=== PATIENT | male | born 1945 | race Caucasian/White ===

== ENCOUNTER → 2016-06-25 | Outpatient (CLI) | payer OTHER, MEDICAID ==
[~2016-06-25] MED LIST: ALBUTEROL0.09 MG/A2 IH; AMOXICILLIN500 MG PO; ASPIRIN CHEWABL81 M1 PO; ASPIRIN CHILDRE81 MG PO; ASPIRIN81 M1 PO; ATIVAN1 MG PO; Albuterol Sulfat3 M1 NEB; BACTRIM DS 8001 TAB PO; BENADRYL50 MG PO; BP MED; BRILINTA90 M1 PO; BRIN20TA PO; CEPHALEXIN500 M1 PO; CIPROFLOXACIN500 MG PO; CLARITIN10 MG PO; COGENTIN0.5 MG PO; COMBIVENT1 AR1 IH; DELTASONE20 MG PO; DESYREL100 MG PO; DIPHENHYDRAMINE25 M1 PO; FANAPT6 MG PO; GEODON20 M1 IM; GEODON80 MG PO; HYDROCODONE BIT1 T11 PO; IBU800 MG PO; INVEGA SUSTENN117 MG IM; INVEGA SUSTENN156 MG IM; INVEGA6 MG PO; KEFLEX500 M1 PO; KETOROLAC TR30 MG/ML IV; LISINOPRIL20 MG PO; LITHIUM CARBON300 MG PO; LORAZEPAM2 MG/ML IV; LOVENOX30 MG/0.3 SC; Lotrimin 1%15 GM T; METICORTEN1 MG; NEXIUM40 MG PO; NORCO 5-325 TA1 EACH PO; NORVASC10 MG PO; NORVASC5 MG PO; PREDNICOT10 MG PO; PREDNICOT20 MG PO; PROAIR HFA0.09 MG/AC INH; PROTONIX TR40 MG PO; PROTONIX40 MG PO; STERILE WATER 110 ML IV; TRAZADONE HYDR100 MG PO; TRAZODONE HCL150 MG PO; TRAZODONE150 MG PO; VISTARIL25 M1 PO; VITAMIN B121000 MCG PO; VITAMIN D5000 UNIT PO; VITAMIN D50000 I2 PO; WYMOX500 MG PO; ZESTRIL10 MG PO; ZITHROMAX Z PA250 MG PO; Zestril,Prinivil5 MG PO; [UNRECOGNIZED DRUG - OTHER] PO
== END | disposition home or self-care (01) ==
LOC: CARD 06-23 07:30
DX: I34.0 Nonrheumatic mitral (valve) insufficiency (principal); I07.1 Rheumatic tricuspid insufficiency; R06.02 Shortness of breath

== ENCOUNTER 2016-09-18 20:09 | Emergency (ER) | payer OTHER, MEDICAID ==
[~2016-09-18] VITALS: Ht 180.3 cm; Wt 86.2 kg
[2016-09-18 20:31] VITALS: BP 114/74
[2016-09-18 21:13] LABS: BASO % 0.3 % (0.0-1.0); EOS # 0.2 10*3/uL (0.0-0.4); EOS % 1.5 % (1.0-4.0); HEMATOCRIT 35.2 % (42.0-52.0); HEMOGLOBIN 11.6 g/dl (14.0-18.0); LYMPH # 1.3 10*3/uL (1.3-4.4); LYMPH % 11.3 % (27.0-41.0); MEAN CELL VOLUME 83.6 fl (80.0-94.0); MEAN CORPUSCULAR HGB 27.6 pg (27.0-31.0); MEAN PLATELET VOLUME 9.3 fl (9.6-12.3); MONO # 0.9 10*3/uL (0.1-1.0); MONO % 7.8 % (3.0-9.0); NEUT # 8.9 10*3/uL (2.3-7.9); NEUT % 78.8 % (47.0-73.0); PLATELET COUNT AUTOMATED 235 10*3/uL (130-400); RED BLOOD COUNT 4.21 10*6/uL (4.50-5.90); RED CELL DISTRI WIDTH 13.1 % (0-14.5); WHITE BLOOD COUNT 11.2 10*3/uL (4.8-10.8)
[2016-09-18 21:24] LABS: PROTHROMBIN TIME 10.5 SECONDS (9.0-12.4)
[2016-09-18 21:31] LABS: ALBUMIN 3.9 gm/dl (3.1-4.5); ALKALINE PHOSPHATASE 95 U/L (45-117); BILIRUBIN, TOTAL 0.8 mg/dl (0.2-1.0); BUN 27 mg/dl (7-24); CARBON DIOXIDE 27 mmol/L (21-32); CHLORIDE 103 mmol/L (98-107); EST GLOM FILT AFRICAN AMERICAN 42 ml/min; GLUCOSE 87 mg/dL (65-99); MAGNESIUM 1.8 mg/dL (1.5-2.1); POTASSIUM 4.5 mmol/L (3.5-5.1); SGOT/AST 17 IU/L (3-35); SGPT/ALT 20 U/L (12-78); SODIUM 138 mmol/L (136-145); TOTAL PROTEIN 6.8 gm/dL (6.4-8.2)
[2016-09-18 21:32] LABS: TROPONIN I < 0.015 ng/ml (<0.045)
== END 2016-09-18 22:10 | disposition home or self-care (01) ==
LOC: ED 20:09
PROVIDERS: Registered Nurse
DX: R42 Dizziness and giddiness (principal); R06.02 Shortness of breath; I10 Essential (primary) hypertension; F31.9 Bipolar disorder, unspecified; Z88.8 Allergy status to other drugs, medicaments and biological substances; Z79.82 Long term (current) use of aspirin; Z79.899 Other long term (current) drug therapy

== ENCOUNTER 2016-11-01 12:34 | Emergency (ER) | payer OTHER, MEDICAID ==
[~2016-11-01] VITALS: Ht 180.3 cm; Wt 79.4 kg
[2016-11-01 12:40] VITALS: BP 133/68
[2016-11-01] MEDS ORDERED: NORVASC5 MG PO (12:42)
[2016-11-01] MEDS ORDERED: VISTARIL25 MG PO (12:43)
[2016-11-01] MEDS ORDERED: VISTARIL25 M2 PO (12:43)
[2016-11-01] MEDS ORDERED: TRINTELLIX20 MG PO (12:44)
[2016-11-01] MEDS ORDERED: BREO ELLIPTA 11 EACH IH (12:44)
[2016-11-01] MEDS ORDERED: ZOCOR40 MG PO (12:44)
== END 2016-11-01 13:43 | disposition home or self-care (01) ==
LOC: ED 12:34
DX: S76.912A Strain of unspecified muscles, fascia and tendons at thigh level, left thigh, initial encounter (principal); Z79.82 Long term (current) use of aspirin; Z79.899 Other long term (current) drug therapy; Z88.8 Allergy status to other drugs, medicaments and biological substances; X50.9XXA Other and unspecified overexertion or strenuous movements or postures, initial encounter; Y93.89 Activity, other specified; Y92.9 Unspecified place or not applicable; Y99.9 Unspecified external cause status

== ENCOUNTER → 2017-02-04 | Outpatient (CLI) | payer OTHER, MEDICAID ==
[~2017-02-04] MED LIST changes: +BREO ELLIPTA 11 EACH IH; +TRINTELLIX20 MG PO; +VISTARIL25 M2 PO; +VISTARIL25 MG PO; +ZOCOR40 MG PO
== END | disposition home or self-care (01) ==
LOC: US 14:24
DX: I74.8 Embolism and thrombosis of other arteries (principal); I73.9 Peripheral vascular disease, unspecified

== ENCOUNTER → 2017-06-08 | Outpatient (CLI) | payer OTHER, MEDICAID | END | disposition home or self-care (01) | LOC: US 09:26 | DX: I71.4 Abdominal aortic aneurysm, without rupture (principal) ==

== ENCOUNTER → 2017-07-27 | Outpatient (CLI) | payer OTHER, MEDICAID ==
[2017-07-27 09:30] LABS: BASO % 0.6 % (0.0-1.0); EOS # 0.3 10*3/uL (0.0-0.4); EOS % 4.1 % (1.0-4.0); HEMATOCRIT 40.3 % (42.0-52.0); HEMOGLOBIN 13.4 g/dl (14.0-18.0); LYMPH # 0.9 10*3/uL (1.3-4.4); LYMPH % 13.3 % (27.0-41.0); MEAN CELL VOLUME 84.5 fl (80.0-94.0); MEAN CORPUSCULAR HGB 28.1 pg (27.0-31.0); MEAN CORPUSCULAR HGB CONC 33.3 g/dl (33.0-37.0); MEAN PLATELET VOLUME 9.2 fl (9.6-12.3); MONO # 0.6 10*3/uL (0.1-1.0); MONO % 8.9 % (3.0-9.0); NEUT # 4.8 10*3/uL (2.3-7.9); NEUT % 72.8 % (47.0-73.0); PLATELET COUNT AUTOMATED 244 10*3/uL (130-400); RED BLOOD COUNT 4.77 10*6/uL (4.50-5.90); RED CELL DISTRI WIDTH 13.8 % (0-14.5); WHITE BLOOD COUNT 6.5 10*3/uL (4.8-10.8)
[2017-07-27 09:42] LABS: ALKALINE PHOSPHATASE 102 U/L (45-117); BUN 19 mg/dl (7-24); CHLORIDE 103 mmol/L (98-107); CHOLESTEROL 158 mg/dL (<200); CREATININE 1.39 mg/dL (0.70-1.30); HDL CHOLESTEROL 68 mg/dl (40-60); LDL CHOLESTEROL 71 mg/dL (9-159); POTASSIUM 4.2 mmol/L (3.5-5.1); SGOT/AST 21 IU/L (3-35); SGPT/ALT 26 U/L (12-78); SODIUM 140 mmol/L (136-145); TOTAL PROTEIN 7.2 gm/dL (6.4-8.2); TRIGLYCERIDES 97 mg/dl (<150); VLDL CHOLESTEROL 19 mg/dL (6-40)
== END | disposition home or self-care (01) ==
LOC: LAB 08:26
PROVIDERS: Internal Medicine
DX: E78.2 Mixed hyperlipidemia (principal); I12.9 Hypertensive chronic kidney disease with stage 1 through stage 4 chronic kidney disease, or unspecified chronic kidney disease; N18.3 Chronic kidney disease, stage 3 (moderate)

== ENCOUNTER → 2017-12-09 | Outpatient (CLI) | payer OTHER, MEDICAID | END | disposition home or self-care (01) | LOC: US 09:12 | DX: Z13.6 Encounter for screening for cardiovascular disorders (principal); I71.4 Abdominal aortic aneurysm, without rupture; I73.9 Peripheral vascular disease, unspecified; Z95.820 Peripheral vascular angioplasty status with implants and grafts ==

== ENCOUNTER → 2018-06-09 | Day surgery (SDC) | payer OTHER, MEDICAID ==
--- NOTE | ~2018-06-09 | PROC NOTE ---
[place], [place] PROCEDURE NOTE NAME: SENTHIL MORRELL UNIT #: [id number] ROOM: DOCTOR: DACIA WU MD BIRTHDATE: [birth year] DOS: 06/09/2018 PREOPERATIVE DIAGNOSIS: Positive Cologuard. POSTOPERATIVE DIAGNOSIS: Sigmoid polyp, poor prep. PROCEDURE: Colonoscopy. ENDOSCOPIST: Dacia Wu MD MEDICAL PATHOLOGIST: JOAQUIN. ANESTHESIA: MAC. INDICATIONS: This is a 72-year-old gentleman who is here for a colonoscopy for a positive Cologuard test. The procedure and its complications were explained to the patient in detail preoperatively. Complications that were discussed included but were not limited to, bleeding, colon perforation, and missed lesions. He agreed to proceed. DESCRIPTION OF PROCEDURE: After identifying the patient, the patient was brought to the endoscopy suite and placed in the left lateral position. After a time-out procedure was called, IV sedation was administered by the anesthesia team. A digital rectal exam was performed, which was within normal limits. An adult colonoscope was now introduced into the anal canal and advanced sequentially into the rectum, sigmoid colon, descending colon, transverse colon and up to the cecum and the ascending colon. The prep was found to be suboptimal in various areas and copious amounts of saline were used for irrigation and sucking out of the liquid stool that was found. During the process of advancing the scope, a small polyp at approximately 40 cm from the anal verge was identified; however, this polyp could not be found during the withdrawal process despite multiple attempts and I think this is because of the patient's poor prep. The scope was then withdrawn and the patient was brought back to the recovery room in a stable fashion. Based on these findings, the patient is recommended to have another colonoscopy in the next few months in order to remove the polyp and to look for new ones after a better prep has been obtained. These findings will be discussed with the patient in the recovery room and in the office. [place], [place] PROCEDURE NOTE NAME: SENTHIL MORRELL UNIT #: [id number] ROOM: DOCTOR: DACIA WU MD BIRTHDATE: [birth year] Dacia Wu MD CM:PROCNOTE:PROCEDURE NOTE [id number] DACIA WU MD
[2018-06-09 08:35] VITALS: BP 133/80
[2018-06-09 09:30] VITALS: BP 122/78
[2018-06-09 09:44] VITALS: BP 109/72
[2018-06-09 09:56] VITALS: BP 109/72
== END | disposition home or self-care (01) ==
LOC: SDC 06-08 17:00
DX: K63.5 Polyp of colon (principal); K21.9 Gastro-esophageal reflux disease without esophagitis; I10 Essential (primary) hypertension; J43.9 Emphysema, unspecified; I73.9 Peripheral vascular disease, unspecified; F31.9 Bipolar disorder, unspecified; F41.9 Anxiety disorder, unspecified; Z87.891 Personal history of nicotine dependence; Z90.49 Acquired absence of other specified parts of digestive tract; Z98.890 Other specified postprocedural states; Z79.899 Other long term (current) drug therapy; Z88.8 Allergy status to other drugs, medicaments and biological substances

== ENCOUNTER → 2018-06-29 | Day surgery (SDC) | payer OTHER, MEDICAID ==
[~2018-06-29] VITALS: Ht 177.8 cm; Wt 79.4 kg
--- NOTE | ~2018-06-29 | PROC NOTE ---
[place], [place] PROCEDURE NOTE NAME: SENTHIL MORRELL UNIT #: [id number] ROOM: DOCTOR: DACIA WU MD BIRTHDATE: [birth year] DOS: 06/29/2018 PREOPERATIVE DIAGNOSIS: Positive Cologuard. POSTOPERATIVE DIAGNOSIS: Poor prep. PROCEDURE: Colonoscopy (incomplete). ENDOSCOPIST: Dacia Wu MD PLANT CONTROLLER: JOAQUIN. ANESTHESIA: MAC. INDICATIONS: This is a 72-year-old gentleman with a positive Cologuard test, was here for a colonoscopy. The procedure and its complications were explained to the patient in detail preoperatively. Complications that were discussed included but were not limited to bleeding, missed lesions and colon perforation. He agreed to proceed. DESCRIPTION OF PROCEDURE: After identifying the patient, the patient was brought to the operating suite and laid in the left lateral position. After time-out procedure was called, IV sedation was administered by the anesthesia team. A digital rectal exam was performed, which was within normal limits. An adult colonoscope was now introduced into the anal canal and advanced sequentially into the rectum where it became quickly obvious that the prep was then inadequate and the scope could not be advanced beyond approximately 20-25 cm from the anal verge. The scope was then withdrawn, and the patient was brought back to the recovery room in a stable fashion. Based on these findings, the patient is recommended to have a different prep for the next colonoscopy, which will be scheduled as an outpatient in the next couple of weeks. Dacia Wu MD CM:PROCNOTE:PROCEDURE NOTE [id number] DACIA WU MD
[2018-06-29 08:32] VITALS: BP 134/78
[2018-06-29 09:15] VITALS: BP 118/66
[2018-06-29 09:30] VITALS: BP 124/64
[2018-06-29 09:45] VITALS: BP 127/92
== END | disposition home or self-care (01) ==
LOC: SDC 06-26 11:00
DX: R19.5 Other fecal abnormalities (principal); K21.9 Gastro-esophageal reflux disease without esophagitis; E78.5 Hyperlipidemia, unspecified; I10 Essential (primary) hypertension; F41.9 Anxiety disorder, unspecified; F43.29 Adjustment disorder with other symptoms; F32.9 Major depressive disorder, single episode, unspecified; J43.9 Emphysema, unspecified; Z87.891 Personal history of nicotine dependence; Z88.8 Allergy status to other drugs, medicaments and biological substances; Z98.890 Other specified postprocedural states; Z72.89 Other problems related to lifestyle; Z90.49 Acquired absence of other specified parts of digestive tract; Z89.429 Acquired absence of other toe(s), unspecified side; Z79.899 Other long term (current) drug therapy

== ENCOUNTER → 2018-07-04 | Outpatient (CLI) | payer OTHER, MEDICAID | END | disposition home or self-care (01) | LOC: US 09:57 | DX: T82.858A Stenosis of other vascular prosthetic devices, implants and grafts, initial encounter (principal); I70.213 Atherosclerosis of native arteries of extremities with intermittent claudication, bilateral legs; I10 Essential (primary) hypertension; Z95.820 Peripheral vascular angioplasty status with implants and grafts; Y82.8 Other medical devices associated with adverse incidents; Y92.89 Other specified places as the place of occurrence of the external cause ==

== ENCOUNTER → 2018-11-08 | Outpatient (CLI) | payer OTHER, MEDICAID ==
[2018-11-08 12:05] LABS: BASO % 0.4 % (0.0-1.0); EOS # 0.2 10*3/uL (0.0-0.4); EOS % 2.7 % (1.0-4.0); HEMATOCRIT 37.5 % (42.0-52.0); LYMPH # 0.6 10*3/uL (1.3-4.4); LYMPH % 7.3 % (27.0-41.0); MEAN CELL VOLUME 89.1 fl (80.0-94.0); MEAN CORPUSCULAR HGB 28.5 pg (27.0-31.0); MEAN PLATELET VOLUME 9.1 fl (9.6-12.3); MONO # 0.7 10*3/uL (0.1-1.0); MONO % 8.5 % (3.0-9.0); NEUT # 6.5 10*3/uL (2.3-7.9); NEUT % 80.6 % (47.0-73.0); PLATELET COUNT AUTOMATED 240 10*3/uL (130-400); RED BLOOD COUNT 4.21 10*6/uL (4.50-5.90); RED CELL DISTRI WIDTH 13.6 % (0-14.5); WHITE BLOOD COUNT 8.1 10*3/uL (4.8-10.8)
[2018-11-08 12:30] LABS: ALBUMIN 3.6 gm/dl (3.1-4.5); CREATININE 1.42 mg/dL (0.70-1.30); POTASSIUM 4.6 mmol/L (3.5-5.1); TOTAL PROTEIN 6.8 gm/dL (6.4-8.2)
== END | disposition home or self-care (01) ==
LOC: LAB 11:25
PROVIDERS: Urology
DX: Z12.5 Encounter for screening for malignant neoplasm of prostate (principal); C61 Malignant neoplasm of prostate

== ENCOUNTER → 2018-11-28 | Outpatient (CLI) | payer OTHER, MEDICAID ==
[2018-11-28 09:15] LABS: BASO % 0.4 % (0.0-1.0); EOS # 0.3 10*3/uL (0.0-0.4); EOS % 4.2 % (1.0-4.0); HEMATOCRIT 38.2 % (42.0-52.0); HEMOGLOBIN 12.4 g/dl (14.0-18.0); LYMPH # 0.9 10*3/uL (1.3-4.4); MEAN CELL VOLUME 87.4 fl (80.0-94.0); MEAN CORPUSCULAR HGB 28.4 pg (27.0-31.0); MEAN CORPUSCULAR HGB CONC 32.5 g/dl (33.0-37.0); MEAN PLATELET VOLUME 8.9 fl (9.6-12.3); MONO # 0.6 10*3/uL (0.1-1.0); MONO % 8.5 % (3.0-9.0); NEUT # 5.5 10*3/uL (2.3-7.9); NEUT % 74.6 % (47.0-73.0); PLATELET COUNT AUTOMATED 234 10*3/uL (130-400); RED BLOOD COUNT 4.37 10*6/uL (4.50-5.90); WHITE BLOOD COUNT 7.3 10*3/uL (4.8-10.8)
[2018-11-28 09:50] LABS: ALBUMIN 3.7 gm/dl (3.1-4.5); CREATININE 1.58 mg/dL (0.70-1.30); POTASSIUM 4.2 mmol/L (3.5-5.1); TOTAL PROTEIN 7.1 gm/dL (6.4-8.2)
== END | disposition home or self-care (01) ==
LOC: LAB 08:46
PROVIDERS: Urology
DX: C61 Malignant neoplasm of prostate (principal)

== ENCOUNTER → 2018-12-21 | Outpatient (CLI) | payer OTHER, MEDICAID ==
[2018-12-21 12:11] LABS: BASO % 0.4 % (0.0-1.0); EOS # 0.1 10*3/uL (0.0-0.4); EOS % 1.6 % (1.0-4.0); HEMATOCRIT 39.6 % (42.0-52.0); HEMOGLOBIN 12.8 g/dl (14.0-18.0); LYMPH # 0.7 10*3/uL (1.3-4.4); LYMPH % 8.9 % (27.0-41.0); MEAN CELL VOLUME 87.2 fl (80.0-94.0); MEAN CORPUSCULAR HGB 28.2 pg (27.0-31.0); MEAN CORPUSCULAR HGB CONC 32.3 g/dl (33.0-37.0); MEAN PLATELET VOLUME 9.5 fl (9.6-12.3); MONO # 0.5 10*3/uL (0.1-1.0); MONO % 6.8 % (3.0-9.0); NEUT # 6.5 10*3/uL (2.3-7.9); NEUT % 81.9 % (47.0-73.0); PLATELET COUNT AUTOMATED 227 10*3/uL (130-400); RED BLOOD COUNT 4.54 10*6/uL (4.50-5.90); RED CELL DISTRI WIDTH 14.1 % (0-14.5)
[2018-12-21 12:44] LABS: CHLORIDE 107 mmol/L (98-107); SODIUM 141 mmol/L (136-145)
[2018-12-21 12:59] LABS: ALKALINE PHOSPHATASE 103 U/L (45-117); BUN 17 mg/dl (7-24); SGOT/AST 15 IU/L (3-35); SGPT/ALT 18 U/L (12-78); TOTAL PROTEIN 7.3 gm/dL (6.4-8.2)
== END | disposition home or self-care (01) ==
LOC: LAB 10:51
PROVIDERS: Urology
DX: I10 Essential (primary) hypertension (principal); R97.20 Elevated prostate specific antigen [PSA]

== ENCOUNTER → 2019-01-30 | Outpatient (CLI) | payer OTHER, MEDICAID | END | disposition home or self-care (01) | LOC: US 09:30 | DX: I71.4 Abdominal aortic aneurysm, without rupture (principal); I73.9 Peripheral vascular disease, unspecified; I25.10 Atherosclerotic heart disease of native coronary artery without angina pectoris; I10 Essential (primary) hypertension ==

== ENCOUNTER 2019-03-07 10:20 | Emergency (ER) | payer OTHER, MEDICAID ==
[~2019-03-07] VITALS: Ht 177.8 cm; Wt 74.8 kg
--- NOTE | ~2019-03-07 | EKG ---
[place], [place] ELECTROCARDIOGRAM REPORT NAME: SENTHIL MORRELL UNIT #: [id number] ROOM: DOCTOR: TIMOTHY DRAFT REPORT BIRTHDATE: [birth year] [facility] Test Date: 2019-03-07 Test Time: 10:21:31 Pat Name: SENTHIL MORRELL Department: Room: ER/VT Gender: M Detective Chief: : [id number] Requested By: JUAN JOSE MYERS Order Number: [id number] Reading MD: Michael Santillan MD Measurements Intervals [place] Rate: 102 P: 70 WA: 145 QRS: 69 QRSD: 92 T: 57 QT: 351 QTc: 458 Interpretive Statements Sinus tachycardia Borderline repolarization abnormality Baseline wander in lead(s) V5,V6 Electronically Signed On 03-12-2019 7:18:07 PDT by Michael Santillan MD CM:EKGRPT:ELECTROCARDIOGRAM REPORT [id number] JUAN JOSE AGUIRRE DRAFT REPORT JUAN JOSE MYERS MD
[2019-03-07 10:46] LABS: BASO % 0.3 % (0.0-1.0); EOS # 0.3 10*3/uL (0.0-0.4); EOS % 3.5 % (1.0-4.0); HEMATOCRIT 39.8 % (42.0-52.0); HEMOGLOBIN 12.9 g/dl (14.0-18.0); LYMPH # 0.6 10*3/uL (1.3-4.4); LYMPH % 7.1 % (27.0-41.0); MEAN CELL VOLUME 87.5 fl (80.0-94.0); MEAN CORPUSCULAR HGB 28.4 pg (27.0-31.0); MEAN CORPUSCULAR HGB CONC 32.4 g/dl (33.0-37.0); MEAN PLATELET VOLUME 9.2 fl (9.6-12.3); MONO # 0.7 10*3/uL (0.1-1.0); MONO % 7.7 % (3.0-9.0); NEUT # 7.2 10*3/uL (2.3-7.9); NEUT % 81.2 % (47.0-73.0); PLATELET COUNT AUTOMATED 213 10*3/uL (130-400); RED BLOOD COUNT 4.55 10*6/uL (4.50-5.90); RED CELL DISTRI WIDTH 13.8 % (0-14.5); WHITE BLOOD COUNT 8.9 10*3/uL (4.8-10.8)
[2019-03-07 10:57] LABS: ACT PARTIAL THROMBO TIME 25.9 SECONDS (20.0-32.1); INTERNATIONAL NORM RATIO 0.9 (2.0-3.5)
[2019-03-07 11:04] LABS: ALBUMIN 3.7 gm/dl (3.1-4.5); ALKALINE PHOSPHATASE 107 U/L (45-117); BUN 20 mg/dl (7-24); CHLORIDE 105 mmol/L (98-107); CREATININE 1.58 mg/dL (0.70-1.30); POTASSIUM 4.4 mmol/L (3.5-5.1); SGOT/AST 12 IU/L (3-35); SGPT/ALT 17 U/L (12-78); SODIUM 137 mmol/L (136-145); TOTAL PROTEIN 6.9 gm/dL (6.4-8.2)
[2019-03-07 11:06] LABS: TROPONIN I < 0.015 ng/ml (<0.045)
[2019-03-07 12:21] VITALS: BP 129/70
== END 2019-03-07 13:43 | disposition home or self-care (01) ==
LOC: ED 10:20
PROVIDERS: Emergency Medicine
DX: R09.89 Other specified symptoms and signs involving the circulatory and respiratory systems (principal); R06.02 Shortness of breath; R05 Cough; R09.3 Abnormal sputum; R06.2 Wheezing; J44.9 Chronic obstructive pulmonary disease, unspecified; Z88.8 Allergy status to other drugs, medicaments and biological substances; Z79.82 Long term (current) use of aspirin; Z79.899 Other long term (current) drug therapy; Z90.49 Acquired absence of other specified parts of digestive tract

== ENCOUNTER → 2019-03-08 | Outpatient (CLI) | payer OTHER, MEDICAID ==
[2019-03-08 08:24] LABS: BASO # 0.1 10*3/uL (0.0-0.1); BASO % 0.6 % (0.0-1.0); EOS # 0.4 10*3/uL (0.0-0.4); EOS % 4.4 % (1.0-4.0); HEMATOCRIT 39.5 % (42.0-52.0); HEMOGLOBIN 12.7 g/dl (14.0-18.0); LYMPH # 0.9 10*3/uL (1.3-4.4); LYMPH % 11.2 % (27.0-41.0); MEAN CELL VOLUME 88.6 fl (80.0-94.0); MEAN CORPUSCULAR HGB 28.5 pg (27.0-31.0); MEAN CORPUSCULAR HGB CONC 32.2 g/dl (33.0-37.0); MEAN PLATELET VOLUME 8.9 fl (9.6-12.3); MONO # 0.8 10*3/uL (0.1-1.0); MONO % 9.5 % (3.0-9.0); NEUT # 6.2 10*3/uL (2.3-7.9); NEUT % 74.1 % (47.0-73.0); PLATELET COUNT AUTOMATED 193 10*3/uL (130-400); RED BLOOD COUNT 4.46 10*6/uL (4.50-5.90); RED CELL DISTRI WIDTH 13.6 % (0-14.5); WHITE BLOOD COUNT 8.4 10*3/uL (4.8-10.8)
[2019-03-08 08:52] LABS: ALBUMIN 3.8 gm/dl (3.1-4.5); CREATININE 1.43 mg/dL (0.70-1.30); POTASSIUM 4.2 mmol/L (3.5-5.1)
== END | disposition home or self-care (01) ==
LOC: LAB 08:01
PROVIDERS: Nurse Practitioner Family
DX: Z12.5 Encounter for screening for malignant neoplasm of prostate (principal); I10 Essential (primary) hypertension; C61 Malignant neoplasm of prostate

== ENCOUNTER 2019-05-13 13:41 | Emergency (ER) | payer OTHER, MEDICAID ==
[~2019-05-13] VITALS: Ht 180.3 cm; Wt 79.4 kg
[2019-05-13 14:42] VITALS: BP 130/77
[2019-05-13] MEDS ORDERED: PROVENTIL HFA6.7 GM INH (15:10)
[2019-05-13] MEDS ORDERED: PREDNISONE20 M1 PO (15:10)
[2019-05-13] MEDS ORDERED: TESSALON PERLE100 MG PO (15:10)
== END 2019-05-13 15:16 | disposition home or self-care (01) ==
LOC: ED 13:41
DX: J44.1 Chronic obstructive pulmonary disease with (acute) exacerbation (principal); K21.9 Gastro-esophageal reflux disease without esophagitis; I10 Essential (primary) hypertension; I25.10 Atherosclerotic heart disease of native coronary artery without angina pectoris; Z87.891 Personal history of nicotine dependence; Z88.8 Allergy status to other drugs, medicaments and biological substances; Z79.899 Other long term (current) drug therapy; Z79.82 Long term (current) use of aspirin

== ENCOUNTER 2019-05-22 06:51 | Inpatient (IN) | payer OTHER, MEDICAID ==
[~2019-05-22] VITALS: Ht 177.8 cm; Wt 79.0 kg
[~2019-05-22 06:51] MED LIST changes: +PREDNISONE20 M1 PO; +PROVENTIL HFA6.7 GM INH; +TESSALON PERLE100 MG PO
[2019-05-22 06:56] VITALS: BP 136/88
[2019-05-22 07:39] LABS: BASO % 0.2 % (0.0-1.0); EOS # 0.4 10*3/uL (0.0-0.4); EOS % 2.3 % (1.0-4.0); HEMATOCRIT 36.5 % (42.0-52.0); LYMPH # 0.5 10*3/uL (1.3-4.4); LYMPH % 2.6 % (27.0-41.0); MEAN CELL VOLUME 86.9 fl (80.0-94.0); MEAN CORPUSCULAR HGB 28.6 pg (27.0-31.0); MEAN CORPUSCULAR HGB CONC 32.9 g/dl (33.0-37.0); MEAN PLATELET VOLUME 9.1 fl (9.6-12.3); MONO # 1.2 10*3/uL (0.1-1.0); NEUT # 15.4 10*3/uL (2.3-7.9); NEUT % 87.6 % (47.0-73.0); PLATELET COUNT AUTOMATED 267 10*3/uL (130-400); RED CELL DISTRI WIDTH 13.2 % (0-14.5); WHITE BLOOD COUNT 17.6 10*3/uL (4.8-10.8)
[2019-05-22 07:50] LABS: ACT PARTIAL THROMBO TIME 28.8 SECONDS (20.0-32.1); INTERNATIONAL NORM RATIO 0.9 (2.0-3.5)
[2019-05-22 07:57] LABS: ALBUMIN 3.2 gm/dl (3.1-4.5); ALKALINE PHOSPHATASE 95 U/L (45-117); BUN 15 mg/dl (7-24); CHLORIDE 106 mmol/L (98-107); CREATININE 1.28 mg/dL (0.70-1.30); POTASSIUM 4.1 mmol/L (3.5-5.1); SGOT/AST 23 IU/L (3-35); SGPT/ALT 24 U/L (12-78); SODIUM 138 mmol/L (136-145); TOTAL PROTEIN 6.7 gm/dL (6.4-8.2)
[2019-05-22 08:03] LABS: TROPONIN I < 0.015 ng/ml (<0.045)
--- NOTE | 2019-05-22 08:11 | NUR ---
PT REQUESTING FOOD PT HASA NO OTHER COMPLAINTS PT STATES HIS BREATHING HAS IMPROVED
[2019-05-22 08:12] VITALS: BP 108/72
[2019-05-22 11:36] VITALS: BP 120/71
[2019-05-22 12:00] VITALS: BP 126/86
[2019-05-22 16:00] VITALS: BP 126/64
[2019-05-22 20:00] VITALS: BP 118/60
[2019-05-23] VITALS: BP 115/62
--- NOTE | 2019-05-23 03:31 | NUR ---
24 HR. CHART CHECK COMPLETE.
[2019-05-23 06:12] LABS: HEMATOCRIT 34.2 % (42.0-52.0); HEMOGLOBIN 11.1 g/dl (14.0-18.0); MEAN CELL VOLUME 87.5 fl (80.0-94.0); MEAN CORPUSCULAR HGB 28.4 pg (27.0-31.0); MEAN CORPUSCULAR HGB CONC 32.5 g/dl (33.0-37.0); MEAN PLATELET VOLUME 9.2 fl (9.6-12.3); PLATELET COUNT AUTOMATED 288 10*3/uL (130-400); RED BLOOD COUNT 3.91 10*6/uL (4.50-5.90); RED CELL DISTRI WIDTH 13.2 % (0-14.5); WHITE BLOOD COUNT 17.2 10*3/uL (4.8-10.8)
--- NOTE | 2019-05-23 06:26 | NUR ---
PATIENT SLEEPING WITH EASY AND REGULAR RESPERS ON 3L O2 VIA NC. CALL LIGHT IS WITHIN REACH, BE IS LOW, LOCKED, ALARMED.
[2019-05-23 06:33] LABS: ALBUMIN 2.8 gm/dl (3.1-4.5); CREATININE 1.5 mg/dL (0.70-1.30); PHOSPHOROUS 3.7 mg/dL (2.5-4.9); POTASSIUM 4.8 mmol/L (3.5-5.1)
[2019-05-23 06:40] LABS: THYROID STIM HORMONE (HS) 0.96 uIU/ml (0.358-4.75); TOTAL PROTEIN 6.4 gm/dL (6.4-8.2)
[2019-05-23 06:52] LABS: ATYPICAL LYMPHS 1 % (0-0); TOTAL CELLS COUNTED 100 #CELLS
[2019-05-23 06:53] LABS: PLATELET SUFFICIENCY NORMAL (NORMAL)
--- NOTE | 2019-05-23 07:31 | NUR ---
VITAL SIGNS STABLE. A&O X3. CHUCKY. CAPILIARY REFILL <3 SECONDS. SKIN TURGOR NOT TENTING. HEART SOUNDS NORMAL. LUNGS SOUNDS DIMINISHED. POSITIVE PEDAL PULSES. PO2 95% 3L NC. ABDOMEN SOFT, NON TENDER, NON DISTENDED. BS ACTIVE X4. SKN INTACT, PINK AND DRY. IV SITE TO RIGHT ARM INTACT AND SHOWS NO S/S OF INFECTON. PT DOES NOT HAVE PAIN AT THIS TIME. VERY PLEASANT. WILL CONTINUE TO MONITOR. LEOPOLDO COOK SPNRCC
[2019-05-23 08:00] VITALS: BP 120/88
[2019-05-23 12:00] VITALS: BP 122/88
--- NOTE | 2019-05-23 12:00 | NUR ---
Caustic Plant Worker in to talk to patient. Patient states lives at HOME with CAREGIVER. There are FEW steps in the home. Physician: APRYL MARTINEZ [facility] Home health services: NONE Patient's level of ADLs: INDEPENDENT Patient has working utilities: YES DME: NONE Follow-up physician's appointment after d/c: WILL BE MADE BY HOSPITALIST NURSE DIRECTOR ON DISCHARGE Does patient want to access PORTAL?: NO Discharge plan PT LIVES AT HOME AND IS INDEPENDENT IN CARE. STATES HE HAS A CAREGIVER WHO HELPS HIM. DENIES HE WILL HAVE ANY NEEDS AT HOME. PLANS TO RETURN HOME WITH CAREGIVER. WILL CONTINUE TO FOLLOW. WILL HAVE A RIDE HOME. . KATELYN HENLEY
--- NOTE | 2019-05-23 13:37 | NUR ---
DR. BYRD AWARE OF CONSULT.
--- NOTE | 2019-05-23 15:35 | NUR ---
DR JUAN NOTIFIED OF CHEST CT SCAN RESULT.
[2019-05-23 16:00] VITALS: BP 122/89
--- NOTE | 2019-05-23 16:01 | NUR ---
SPEECH PATHOLOGY Clinical swallowing evaluation completed as per orders to r/o spiration. Patient was admitted with failure of outpatient treatment, sepsis and pneumonitis. Further history includes COPD, GERD, HH, prostate CA. Recent CXR revealed bibasilar consolidation with debris in lober lobe bronchi, left greater than right with aspiration suspected. Patient is ordered a regular diet and thin liquid. He was seen for assessment this pm, alert and cooperative. He reported loose fitting denture which results in food getting stuck in mouth at times. He was given coarse solid and thin liquid. He displayed no overt s/s aspiration. Recommend he remain on present diet with use of universal safe swallow precautions. Short term f/u will be conducted to ensure safe tolerance of diet. Results and mojgan. were shared with patient and his nurse and they verbalized understanding. Refer to report in [employer] for further information. Thank you for this referral. FRANCES GRIGSBY MSCCC-ROLLER PRESSER OPERATOR
--- NOTE | 2019-05-23 16:03 | NUR ---
SPEECH IN TO SEE PT, NO DIET CHANGES AT THIS TIME. SPEECH TO FOLLOW
[2019-05-23 20:00] VITALS: BP 119/68
--- NOTE | 2019-05-23 20:00 | NUR ---
ALERT ORIENTED X3. PLEASANT SITTING UP IN BED. RESP. REG. O2 2L NC IN USE. MILD RHONCHI AND HARSH PRODUCTIVE COUGH FOR PALE YELLOW SPUTUM. ABD SOFT NORMAL ACTIVE BOWEL SOUNDS X 4. NO EDEMA NOTED. IV SITE ASYMPT INFUSING 0.9NS AT 100ML/HR VIA PUMP.
[2019-05-24] VITALS: BP 115/54
--- NOTE | 2019-05-24 00:05 | NUR ---
PATIENT RESTING IN A POSITION OF COMFORT IN BED WITH EYES CLOSED, RESPIRATIONS EASY AND NON-LABORED AT THIS TIME. IV FLUIDS INFUSING WITHOUT INCIDENT AT THIS TIME. CALL LIGHT WITHIN REACH, WILL CONTINUE TO MONITOR.
--- NOTE | 2019-05-24 02:10 | NUR ---
PATIENT RESTING IN BED IN A POSITION OF COMFORT WITH EYES CLOSED, RESPIRATIONS EASY AND NON-LABORED AT THIS TIME. CALL LIGHT WITHIN REACH, WILL CONTINUE TO MONITOR.
[2019-05-24 07:03] LABS: HEMATOCRIT 33.3 % (42.0-52.0); HEMOGLOBIN 10.6 g/dl (14.0-18.0); MEAN CELL VOLUME 88.3 fl (80.0-94.0); MEAN CORPUSCULAR HGB 28.1 pg (27.0-31.0); MEAN CORPUSCULAR HGB CONC 31.8 g/dl (33.0-37.0); MEAN PLATELET VOLUME 9.6 fl (9.6-12.3); PLATELET COUNT AUTOMATED 302 10*3/uL (130-400); RED BLOOD COUNT 3.77 10*6/uL (4.50-5.90); RED CELL DISTRI WIDTH 13.6 % (0-14.5); WHITE BLOOD COUNT 21.5 10*3/uL (4.8-10.8)
[2019-05-24 07:11] LABS: ALBUMIN 2.7 gm/dl (3.1-4.5); ALKALINE PHOSPHATASE 82 U/L (45-117); BUN 23 mg/dl (7-24); CHLORIDE 112 mmol/L (98-107); CREATININE 1.38 mg/dL (0.70-1.30); SGOT/AST 19 IU/L (3-35); SGPT/ALT 25 U/L (12-78); SODIUM 141 mmol/L (136-145); TOTAL PROTEIN 5.9 gm/dL (6.4-8.2)
[2019-05-24 07:31] LABS: TOTAL CELLS COUNTED 100 #CELLS
[2019-05-24 07:32] LABS: PLATELET SUFFICIENCY NORMAL (NORMAL)
[2019-05-24 08:00] VITALS: BP 112/58
--- NOTE | 2019-05-24 09:19 | NUR ---
PT C/O INDIGESTION AND CONSTIPATION,MILK OF MG AND DULCOLAX 5 MG GIVEN PER PT REQUEST.
--- NOTE | 2019-05-24 10:30 | NUR ---
Occupational therapy orders received and OT evaluation completed in full on floor five. Patient precautions include fall risk, 1LO2, and weakness. Per OT eval, OT recommends home with HH SN, OT, and PT with continued caregiver needs. Patient would benefit from continued OT treatment to maximize safety and independence with ADLs, functional mobility, and transfers. Patient complexity is low, [id number]. Thank you for the referral. Brenda Hough, OTR/L
--- NOTE | 2019-05-24 11:50 | NUR ---
ATIVAN 0.5 MG GIVEN FOR C/O ANXIETY.
--- NOTE | 2019-05-24 11:51 | NUR ---
DR JACOME ROUNDED AND SEEN PT.
[2019-05-24 12:00] VITALS: BP 120/66
--- NOTE | 2019-05-24 12:36 | NUR ---
PT STATES HE WILL RETURN HOME WITH AGENT WHEN MEDICALLY STABLE. WILL CONTINUE TO FOLLOW.
--- NOTE | 2019-05-24 13:54 | NUR ---
PHYSICAL THERAPY Oli completed pt moderate complexity [id number] recommed home w HH and caregiver if continues to progress well with ambulation and stairs. PT to work on transfers,amb, strengthening, balance/safety and stair training. Britney Chopra PT
--- NOTE | 2019-05-24 14:14 | NUR ---
SPEECH PATHOLOGY Patient was seen for follow up treatment this pm to ensure safe tolerance of diet. Patient is ordered a regular diet and thin liquid. Patient reported breathing better today and feeling stronger. He no longer requires O2. He has been afebrile. During treatment he took sips of water and displayed no overt difficulty. He had an empty plate of food in front of him which he stated he consumed without difficulty. He reported fair intake with meals, as he has not had much of an appetite. As patient is displaying safe tolerance for regular diet and thin liquid, recommend he remain on the diet, with discharge from dysphagia therapy at this time. Thank you for this referral. It has been a pleasure taking part in this patient's care. FRANCES GRIGSBY MSCCC-BANDSAW OPERATOR
--- NOTE | 2019-05-24 14:30 | NUR ---
PHYSICAL THERAPY Patient seen this pm 1:1 for therapy visit and was sitting up in bedside chair upon therapist arrival. Patient identified by name / and reports no new c/o's at this time. Patient transfers sit to stand SBA and ambulates without AD, 100'x 1 to stairway, CGA, then navigated up / down 10 steps, single handrail support, CGA, demonstrating Alternating step sequence upon ascent and single step sequence during descent. Patient ambulated additional 100'x 1 upon return to bedside chair with increased fatigue, recording SpO2 93%, HR 108 bpm. Following 1 minute seated rest patient SpO2 96%, HR 101 bpm. Patient remained in bedside chair with call light, tray table, cell phone and body alarm for safety. Will continue per POC as tolerated, total treatment time 17 minutes. Tony Childress, MEAT SMOKER
[2019-05-24 16:00] VITALS: BP 123/69; BP 129/46
--- NOTE | 2019-05-24 16:37 | NUR ---
PT INSTRUCTED ON USE OF IS. PT DEMONSTRATED PROPER TECHNIQUE. PT ACHIEVED 2500 CC. INSTRUCTED TO USE Q2 HR W/A.
[2019-05-24 20:00] VITALS: BP 134/65
--- NOTE | 2019-05-24 20:40 | NUR ---
DR JUAN NOTIFIED OF PT REQUEST FOR TUMS FOR C/O HEARTBURN. NO NEW ORDERS AT THIS TIME.
[2019-05-25] VITALS: BP 136/71
--- NOTE | 2019-05-25 01:16 | NUR ---
24 HOUR CHART CHECK COMPLETE.
[2019-05-25 08:00] VITALS: BP 147/84
--- NOTE | 2019-05-25 08:53 | NUR ---
OT NOTE Pt was seen this A.M. 1:1 for 23 minute OT session. Upon arrival pt was supine in bed. Pt identified by name and and had no complaints at this time. Pt transferred supine to sit EOB with supervision. Sit to stand completed from bed level with SBA followed by functional mobility into the bathroom with SBA for safety. Throughout pt was very impulsive increasing risk of falls. Educated pt on importance of slowing down for enhanced safety. There he transferred on/off standard commode with supervision. Functional mobility was then completed back to the EOB where he sat for a seated rest break. Then challenged pt's dynamic standing tolerance needed for increased I and enhanced safety. While weight shifting, crossing midline, and reaching over all planes pt was able to maintain F+/G- balance. Pt then completed BUE towel exercises over all planes of motion for 1 X 10 to increase UE strength needed for increased I in self care tasks and functional transfers. Pt was left sitting upright on the standard commode with call alfaro in reach. Continue with rec D/C plan to home with home health. INDU East/Preeti
--- NOTE | 2019-05-25 09:39 | NUR ---
PHYSICAL THERAPY Patient presented to therapy in supine with head of bed elevated and report of feeling pretty good , except for some stomach cramps. Patient transferred supine to sitting at EOB with SBA. Patient transferred sit to stand from EOB with SBA. Patient ambulated with no assistive device and Close Supervision for 420' x 1 with no LOB or other difficulty. Patient went into the restroom and transferred on and off commode with MOD I. Patient was left on side of bed with call light within reach. Patient is Indenpendent in room throughout the day ambulating too and from the restroom on his own with no assistive device. Patient was 1:1 with this SENIOR ENVIRONMENTAL SCIENTIST for 16 minutes total. JUAN PAGAN SENIOR ENVIRONMENTAL SCIENTIST
--- NOTE | 2019-05-25 11:16 | NUR ---
PT LIVES AT HOME WITH CAREGIVER. WILL CONTINUE TO FOLLOW.
[2019-05-25 12:00] VITALS: BP 151/84
--- NOTE | 2019-05-25 13:29 | NUR ---
OCCUPATIONAL THERAPY CO-SIGN I approve of the Occupational Therapy notes written above. Brenda Hough, OTR/L
[2019-05-25 16:00] VITALS: BP 117/58
[2019-05-25 20:00] VITALS: BP 140/90
--- NOTE | 2019-05-25 20:13 | NUR ---
PT. REFUSED AEROSOL TREATMENT
--- NOTE | 2019-05-26 03:16 | NUR ---
24 HOUR CHART CHECK COMPLETE.
[2019-05-26 06:34] LABS: BUN 25 mg/dl (7-24); CHLORIDE 108 mmol/L (98-107); CREATININE 1.25 mg/dL (0.70-1.30); POTASSIUM 5.1 mmol/L (3.5-5.1); SODIUM 142 mmol/L (136-145)
[2019-05-26 07:42] LABS: HEMATOCRIT 35.6 % (42.0-52.0); HEMOGLOBIN 11.2 g/dl (14.0-18.0); MEAN CELL VOLUME 88.6 fl (80.0-94.0); MEAN CORPUSCULAR HGB 27.9 pg (27.0-31.0); MEAN CORPUSCULAR HGB CONC 31.5 g/dl (33.0-37.0); MEAN PLATELET VOLUME 9.5 fl (9.6-12.3); PLATELET COUNT AUTOMATED 311 10*3/uL (130-400); RED BLOOD COUNT 4.02 10*6/uL (4.50-5.90); RED CELL DISTRI WIDTH 13.6 % (0-14.5); WHITE BLOOD COUNT 18.7 10*3/uL (4.8-10.8)
--- NOTE | 2019-05-26 07:48 | NUR ---
ZOFRAN GIVEN FOR C/O NAUSEA, WILL MONITOR.
[2019-05-26 08:00] VITALS: BP 149/83
[2019-05-26 08:37] LABS: PLATELET SUFFICIENCY NORMAL (NORMAL); TOTAL CELLS COUNTED 100 #CELLS
--- NOTE | 2019-05-26 08:50 | NUR ---
ZOFRAN EFFECTIVE PER PT.
--- NOTE | 2019-05-26 10:55 | NUR ---
ATIVAN GIVEN FOR C/O ANXIETY. WILL MONITOR.
[2019-05-26 12:00] VITALS: BP 138/63
--- NOTE | 2019-05-26 12:00 | NUR ---
ATIVAN EFFECTIVE PER PT.
[2019-05-26 16:00] VITALS: BP 142/72
--- NOTE | 2019-05-26 19:48 | NUR ---
SPOKE WITH DR FRAIRE REGARDING PT REQUEST FOR TUMS FOR C/O HEARTBURN, STATES TO PUT THE ORDER IN.
[2019-05-26 20:00] VITALS: BP 144/75
--- NOTE | 2019-05-26 22:21 | NUR ---
24 HOUR CHART CHECK COMPLETE.
[2019-05-27] VITALS: BP 146/74
[2019-05-27 06:35] LABS: BASO % 0.1 % (0.0-1.0); HEMATOCRIT 35.3 % (42.0-52.0); HEMOGLOBIN 11.2 g/dl (14.0-18.0); LYMPH # 0.8 10*3/uL (1.3-4.4); LYMPH % 4.8 % (27.0-41.0); MEAN CELL VOLUME 87.4 fl (80.0-94.0); MEAN CORPUSCULAR HGB 27.7 pg (27.0-31.0); MEAN CORPUSCULAR HGB CONC 31.7 g/dl (33.0-37.0); MEAN PLATELET VOLUME 9.4 fl (9.6-12.3); MONO # 0.8 10*3/uL (0.1-1.0); MONO % 5.2 % (3.0-9.0); NEUT # 14.1 10*3/uL (2.3-7.9); PLATELET COUNT AUTOMATED 294 10*3/uL (130-400); RED BLOOD COUNT 4.04 10*6/uL (4.50-5.90); RED CELL DISTRI WIDTH 13.4 % (0-14.5); WHITE BLOOD COUNT 15.9 10*3/uL (4.8-10.8)
--- NOTE | 2019-05-27 06:55 | NUR ---
ZOFRAN ADMINISTERED FOR PT C/O NAUSEA.
[2019-05-27 07:06] LABS: BUN 25 mg/dl (7-24); CHLORIDE 107 mmol/L (98-107); CREATININE 1.11 mg/dL (0.70-1.30); POTASSIUM 4.9 mmol/L (3.5-5.1); SODIUM 139 mmol/L (136-145)
[2019-05-27 08:00] VITALS: BP 150/80
--- NOTE | 2019-05-27 10:47 | NUR ---
PATIENT AT DESK ASKING FOR AND RECEIVED ATIVAN PER ORDER.
--- NOTE | 2019-05-27 10:48 | NUR ---
MEDICATED WITH ATIVAN PER ORDER AND REQUEST.
[2019-05-27 12:00] VITALS: BP 162/89
--- NOTE | 2019-05-27 12:33 | NUR ---
DEANNE EARLIER HELPED.
[2019-05-27] MEDS ORDERED: IMODIUM A-D2 M2 PO (13:05)
[2019-05-27] MEDS ORDERED: PREDNISONE10 MG PO (13:05)
[2019-05-27] MEDS ORDERED: SEPTDS PO (13:05)
--- NOTE | 2019-05-27 13:44 | NUR ---
MEDICATIONS GIVEN TO PATIENT. PATIENT SIGNED DISCHARGE PAPERS AND VERBALIZED UNDERSTANDING. STATED TO FOLLOW UP WITH PATIENTS PCP IN 1 WEEK AND THAT HIS PRESCRIPTIONS WERE SENT OVER TO HIS PHARMACY. HEP LOCK REMOVED AND INVENTORY SHEET SIGNED
--- NOTE | 2019-05-27 14:11 | NUR ---
PATIENT D/C AMBULATORY WITH FAMILY MEMBER
--- NOTE | 2019-05-28 07:37 | NUR ---
PHYSICAL THERAPY CO-SIGN I approve of the Physical Therapy notes written above. Britney Chopra PT
== END 2019-05-27 14:11 | disposition home or self-care (01) | DRG 871 ==
LOC: ED 06:51 → 4E 09:01 → EDHOLD 09:01 → 5E 09:01 → 4E 05-24 15:15
PROVIDERS: Emergency Medicine; Hospitalist; Internal Medicine; ADMIT Family Medicine
DX: A41.9 Sepsis, unspecified organism (principal); J15.3 Pneumonia due to streptococcus, group B; F41.9 Anxiety disorder, unspecified; J43.9 Emphysema, unspecified; I73.9 Peripheral vascular disease, unspecified; C61 Malignant neoplasm of prostate; I10 Essential (primary) hypertension; E78.5 Hyperlipidemia, unspecified; D64.9 Anemia, unspecified; K59.1 Functional diarrhea; F31.9 Bipolar disorder, unspecified; J20.9 Acute bronchitis, unspecified; Z79.82 Long term (current) use of aspirin; Z79.899 Other long term (current) drug therapy; Z82.49 Family history of ischemic heart disease and other diseases of the circulatory system; Z84.1 Family history of disorders of kidney and ureter; Z88.8 Allergy status to other drugs, medicaments and biological substances; Z95.820 Peripheral vascular angioplasty status with implants and grafts; Z87.891 Personal history of nicotine dependence

== ENCOUNTER 2019-05-28 07:44 | Inpatient (IN) | payer OTHER, MEDICAID ==
[~2019-05-28] VITALS: Ht 177.8 cm; Wt 76.8 kg
[2019-05-28] VITALS (8 sets, daily range): BP systolic 117–150; BP diastolic 74–95
[~2019-05-28 07:44] MED LIST changes: +IMODIUM A-D2 M2 PO; +PREDNISONE10 MG PO; +SEPTDS PO
[2019-05-28 08:21] LABS: BASO % 0.1 % (0.0-1.0); EOS % 0.1 % (1.0-4.0); HEMATOCRIT 36.6 % (42.0-52.0); HEMOGLOBIN 12.1 g/dl (14.0-18.0); LYMPH % 6.1 % (27.0-41.0); MEAN CELL VOLUME 86.1 fl (80.0-94.0); MEAN CORPUSCULAR HGB 28.5 pg (27.0-31.0); MEAN CORPUSCULAR HGB CONC 33.1 g/dl (33.0-37.0); MEAN PLATELET VOLUME 9.1 fl (9.6-12.3); MONO # 1.2 10*3/uL (0.1-1.0); MONO % 7.2 % (3.0-9.0); NEUT # 13.6 10*3/uL (2.3-7.9); NEUT % 85.6 % (47.0-73.0); PLATELET COUNT AUTOMATED 295 10*3/uL (130-400); RED BLOOD COUNT 4.25 10*6/uL (4.50-5.90); RED CELL DISTRI WIDTH 13.4 % (0-14.5); WHITE BLOOD COUNT 15.9 10*3/uL (4.8-10.8)
[2019-05-28 08:30] LABS: ACT PARTIAL THROMBO TIME 22.1 SECONDS (20.0-32.1); INTERNATIONAL NORM RATIO 0.9 (2.0-3.5)
[2019-05-28 08:40] LABS: ALBUMIN 3.2 gm/dl (3.1-4.5); CREATININE 1.42 mg/dL (0.70-1.30); POTASSIUM 4.3 mmol/L (3.5-5.1); TROPONIN I 0.023 ng/ml (<0.045)
--- NOTE | 2019-05-28 08:40 | NUR ---
[place] 3.[address] DR RODRIGUEZ NOTIFIED
--- NOTE | 2019-05-28 10:19 | NUR ---
A 73, admitted to , under the services of SAMAN Dee DO with a diagnosis of dyspnea on exhirtion,severe sepsis,pneumonitis. Chief complaint is multiple complaints, n/v diarhea.. Patient arrived via ambulance from ER. Monitor applied. Initial assessment completed. Vital signs taken and recorded. SAMAN DEE DO notified of admission to the unit. Orders received. See assessment for past medical history, medications and allergies. Patient and/or family oriented to unit. [facility] telemetry unit. visitation policy reviewed. Clothing/patient valuable form completed. VIOLETTA RICKETTS
--- NOTE | 2019-05-28 10:20 | NUR ---
ZITHROMAX IV GIVEN TO ADMISSION NURSE TO START INFUSION.
--- NOTE | 2019-05-28 11:40 | NUR ---
CALL PLACED TO DR. BYRD, ADVISED OF NEW CONSULT.
--- NOTE | 2019-05-28 12:51 | NUR ---
PATIENT REPORTING A GREAT DEAL OF ANXIETY MEDICATED WITH LORAZEPAM ORDERED PRN.
--- NOTE | 2019-05-28 13:00 | NUR ---
ADVISED Humble SALINAS, THAT PATIENT HAD REPORTED HE TOOK HIS BRILENTA, COGENTIN, NORVASC, AND TRINTELIX PRIOR TO COMING IN TO HOSPITAL TODAY. SHE VERSED SHE WILL TAKE CARE OF.
--- NOTE | 2019-05-28 13:51 | NUR ---
GOOD RELIEF FROM ATIVAN GIVEN X 1 HOUR AGO PER PATIENT.
--- NOTE | 2019-05-28 14:51 | NUR ---
Specialist Managers in to talk to patient. Patient states lives at HOME with ALONE WITH CAREGIVER 2 DAYS A WEEK 2 HOURS EACH DAY. There are NO steps in the home. Physician: APRYL MARTINEZ [facility] Home health services: NONE Patient's level of ADLs: INDEPENDENT Patient has working utilities: YES DME: NONE Follow-up physician's appointment after d/c: WILL BE MADE BY HOSPITALIST NURSE DIRECTOR ON DISCHARGE Does patient want to access PORTAL?: NO Discharge plan PT STATES HE LIVES AT HOME ALONE. STATES HE HAS A CAREGIVER THAT COMES IN TWO OR THREE TIMES A DAY FOR 2 HOURS EACH DAY AND HELPS HIM IF HE NEEDS IT. PT STATES HE PLANS TO RETURN HOME ON DISCHARGE AND WILL HAVE NO NEW NEEDS. WILL CONTINUE TO FOLLOW. WILL HAVE A RIDE HOME.\. KATELYN HENLEY
--- NOTE | 2019-05-28 21:35 | NUR ---
ATIVAN GIVEN PER ORDER FOR ANXIETY AND VISTARIL GIVEN PER ORDER FOR ANXIETY INSOMNIA. NO ACUTE DISTRESS NOTED.
--- NOTE | 2019-05-28 22:45 | NUR ---
VISTARIL AND ATIVAN EFFECTIVE FOR ANXIETY AND INSOMNIA. PT. SLEEPING.
[2019-05-29] VITALS: BP 144/83
--- NOTE | 2019-05-29 02:35 | NUR ---
sleeping no acute distress noted.
[2019-05-29 06:54] LABS: HEMATOCRIT 37.7 % (42.0-52.0); HEMOGLOBIN 12.1 g/dl (14.0-18.0); MEAN CELL VOLUME 86.9 fl (80.0-94.0); MEAN CORPUSCULAR HGB 27.9 pg (27.0-31.0); MEAN CORPUSCULAR HGB CONC 32.1 g/dl (33.0-37.0); MEAN PLATELET VOLUME 9.2 fl (9.6-12.3); PLATELET COUNT AUTOMATED 300 10*3/uL (130-400); RED BLOOD COUNT 4.34 10*6/uL (4.50-5.90); RED CELL DISTRI WIDTH 13.3 % (0-14.5); WHITE BLOOD COUNT 15.3 10*3/uL (4.8-10.8)
--- NOTE | 2019-05-29 07:00 | NUR ---
IN TO SEE PT. PTS ONLY COMPLAINT AT THIS TIME IS HE FEELS SOB WITH EXERTION. PT DISPLAYS NO S/S OF SOB AT THIS TIME. ASSESSMENT COMPLETED. EDUCATED PT ON PURSED LIP BREATHING AND USE OF CALL LIGHT. CALL LIGHT WITHIN REACH. WILL MONITOR.
[2019-05-29 07:23] LABS: ALBUMIN 2.9 gm/dl (3.1-4.5); BUN 23 mg/dl (7-24); CHLORIDE 105 mmol/L (98-107); POTASSIUM 4.8 mmol/L (3.5-5.1); SGOT/AST 22 IU/L (3-35); SGPT/ALT 51 U/L (12-78); SODIUM 139 mmol/L (136-145)
[2019-05-29 07:30] LABS: ALKALINE PHOSPHATASE 82 U/L (45-117); CREATININE 1.18 mg/dL (0.70-1.30); PHOSPHOROUS 3.8 mg/dL (2.5-4.9); TOTAL CELLS COUNTED 100 #CELLS; TOTAL PROTEIN 5.8 gm/dL (6.4-8.2)
[2019-05-29 07:31] LABS: PLATELET SUFFICIENCY NORMAL (NORMAL)
[2019-05-29 08:00] VITALS: BP 142/84
--- NOTE | 2019-05-29 08:18 | NUR ---
PT STATES HE IS FEELING VERY ANXIOUS AND REQUESTING ATIVAN. MEDICATED WITH PRN ATIVAN AT THIS TIME. WILL CHECK EFFECTIVENESS. NOTIFIOED OF PTS HR IN THE 120S. NO NEW ORDERS RECEIVED. WILL MONITOR. CALL LIGHT IN REACH.
--- NOTE | 2019-05-29 08:30 | NUR ---
JIGNESH AWARE PTS HR CONTINUES TO BE IN THE LOW 100s-120s.
--- NOTE | 2019-05-29 09:05 | NUR ---
PT CO UOSET STOMACH AND SAYS HE FEELS NAUSEOUS. INFORMED AND IS GOING TO PUT SOME ZOFRAN ON HIS MEDS.
--- NOTE | 2019-05-29 09:15 | NUR ---
PT STATES ATIVAN WAS EFFECTIVE. WILL CONTINUE TO MONITOR.
--- NOTE | 2019-05-29 09:20 | NUR ---
PT MEDICATED WITH PRN ZOFRAN FOR CO FEELING NAUSEOUS. WILL CHECK EFFECTIVENESS. CALL LIGHT WITHIN REACH.
--- NOTE | 2019-05-29 10:00 | NUR ---
PT STATES ZOFRAN WAS EFFECTIVE. WILL CONTINUE TO MONITOR.
[2019-05-29 12:00] VITALS: BP 138/73
--- NOTE | 2019-05-29 14:20 | NUR ---
PTS HR STAYING IN THE LOW 100S. PT LAYING IN BED. ASYMPTOMATIC. NO COMPLAINTS AT THIS TIME. WILL CONTINUE TO MONITOR. CALL LIGHT WITHIN REACH.
[2019-05-29 16:00] VITALS: BP 139/76
[2019-05-29 20:00] VITALS: BP 144/75
--- NOTE | 2019-05-29 21:16 | NUR ---
VISTARIL GIVEN PER ORDER FOR INSOMNIA.
--- NOTE | 2019-05-29 21:45 | NUR ---
GAVE PATIENT NIGHT TIME MEDICATIONS. PT. COUGHING AND HAD LARGE EMESIS WITH PILLS VISIBLLY SEEN IN EMESIS. PT. CLEANED UP AND GOWN/LINEN CHANGED.
--- NOTE | 2019-05-29 22:17 | NUR ---
PT CONTINUS TO HAVE ACID REFLUX AND NAUSEA. ZOFRAN BEING GIVEN PER ORDER. SEE MAR.
--- NOTE | 2019-05-29 23:15 | NUR ---
PT. AWAKEND AND ZOFRAN EFFECTIVE FOR NAUSEA.
[2019-05-30] VITALS: BP 131/82
--- NOTE | 2019-05-30 | NUR ---
PT SLEEPING IN BED, AWAKENS EASILY. NO C/O AT THIS TIME. CALL LIGHT IN REACH. SEE SHIFT ASSESSMENT.
--- NOTE | 2019-05-30 04:00 | NUR ---
SLEEPING IN BED. RESP-EASY AND REGULAR. CALL LIGHT IN REACH.
--- NOTE | 2019-05-30 06:00 | NUR ---
SLEEPING IN BED. RESP-EASY AND REGULAR. CALL LIGHT IN REACH.
[2019-05-30 12:00] VITALS: BP 138/72
[2019-05-30 16:00] VITALS: BP 142/81
[2019-05-30 20:00] VITALS: BP 124/81
[2019-05-31] VITALS: BP 138/82
--- NOTE | 2019-05-31 06:35 | NUR ---
PATIENT MEDICATED WITH ZOFRAN FOR COMPLAINTS OF NAUSEA. WILL CHECK EFFECTIVENESS.
[2019-05-31 07:04] LABS: BASO % 0.1 % (0.0-1.0); EOS % 0.1 % (1.0-4.0); HEMOGLOBIN 12.5 g/dl (14.0-18.0); LYMPH % 6.2 % (27.0-41.0); MEAN CELL VOLUME 88.2 fl (80.0-94.0); MEAN CORPUSCULAR HGB 28.3 pg (27.0-31.0); MEAN CORPUSCULAR HGB CONC 32.1 g/dl (33.0-37.0); MEAN PLATELET VOLUME 9.3 fl (9.6-12.3); MONO # 1.1 10*3/uL (0.1-1.0); NEUT # 13.6 10*3/uL (2.3-7.9); NEUT % 85.9 % (47.0-73.0); PLATELET COUNT AUTOMATED 261 10*3/uL (130-400); RED BLOOD COUNT 4.42 10*6/uL (4.50-5.90); RED CELL DISTRI WIDTH 13.9 % (0-14.5); WHITE BLOOD COUNT 15.8 10*3/uL (4.8-10.8)
[2019-05-31 07:25] LABS: BUN 26 mg/dl (7-24); CHLORIDE 104 mmol/L (98-107); CREATININE 1.24 mg/dL (0.70-1.30); POTASSIUM 4.3 mmol/L (3.5-5.1); SODIUM 139 mmol/L (136-145)
[2019-05-31 08:00] VITALS: BP 144/70
--- NOTE | 2019-05-31 10:55 | NUR ---
VISUAL DESIGN LEAD contacted RN Hospitalist Coordinator Belen to obtain PT/OT Orders. Patient would require PRECERT if elligable for SNF. Patient would only be able to go to [facility] or [facility] (In Network). Truck Driver Salesperson bri Clinton. Will await PT/OT Evals. -LARISSA Torres
--- NOTE | 2019-05-31 11:30 | NUR ---
TALKED WITH PT ABOUT GOING TO A SNF ON DISCHARGE. STATES HE WOULD GO TO [facility], BUT THEY ARE OUT OF NETWORK WITH INSURANCE. AGREES TO [facility]. WILL NEED PT AND OT ORDERS, TONYA CALLED AND INFORMED TEN. WILL CONTINUE TO FOLLOW.
[2019-05-31 12:00] VITALS: BP 141/78
--- NOTE | 2019-05-31 12:19 | NUR ---
Patient agreeable to Pulmonary rehab requested by Dr. Coreas. contacted Lorena at [facility] and faxed referral. Lorena will check for out of network benefits as well as qualification for admission.
--- NOTE | 2019-05-31 13:26 | NUR ---
Patient is agreeable to snf placement per Dr. Coreas request. [facility] patient with out of network benefits stating it will not cost the patient anything since he has [place]icaid of [place] as a 2nd insurance. Waiting on PT/OT roverto to start precert.
--- NOTE | 2019-05-31 14:22 | NUR ---
Occupational Therapy evaluation completed on 4 with full eval to follow. Precautions include IV UE, impulsive, increased heart rate and SOB w/moderate exertion.Patient c/o lack of energy, depression and SOB. Patient is low complexity level [id number]. He could benefit from OT and SNF to enable his ease in stairs, functional mobility and energy conservation/work simplification to live alone. Patient admits that he has not been doing well at home and struggles w/ ADL/IADLs. Thank you Alicia Romero OTr/l
--- NOTE | 2019-05-31 14:24 | NUR ---
PHYSICAL THERAPY Janelleal completed pt moderate level of complexity [id number] full report to follow recomned SNF at discharge. PT to work on tranfers, amb, stairs, balance/safety Britney Chopra PT
--- NOTE | 2019-05-31 14:52 | NUR ---
patient accepted to [facility], therapy evals completed and faxed. Hospital exemption completed, precert started. waiting on auth.
[2019-05-31 16:00] VITALS: BP 129/80
[2019-05-31 20:00] VITALS: BP 142/74
--- NOTE | 2019-05-31 20:33 | NUR ---
PRN VISTARIL GIVEN FOR PT COMPLAINTS OF SLEEPLESSNESS AND ANXIETY. CALL LIGHT WITHIN REACH, WILL MONITOR
[2019-06-01] VITALS: BP 135/89
--- NOTE | 2019-06-01 01:10 | NUR ---
PATIENT IS SLEEPING WITH EASY AND REGULAR RESPERS ON ROOM AIR. AWAKENES EASILY FOR ASSESSMENT. NO C/O OR S/S OF DISTRESS NOTED AT THIS TIME. BED IS LOW, LOCKED, AND CALL LIGHT IS WITHIN REACH, WILL CONTINUE TO MONITOR.
[2019-06-01 07:41] LABS: BASO % 0.1 % (0.0-1.0); EOS % 0.2 % (1.0-4.0); HEMATOCRIT 39.1 % (42.0-52.0); HEMOGLOBIN 12.4 g/dl (14.0-18.0); LYMPH % 6.9 % (27.0-41.0); MEAN CELL VOLUME 88.3 fl (80.0-94.0); MEAN CORPUSCULAR HGB CONC 31.7 g/dl (33.0-37.0); MEAN PLATELET VOLUME 9.4 fl (9.6-12.3); MONO % 7.1 % (3.0-9.0); NEUT # 11.7 10*3/uL (2.3-7.9); NEUT % 85.2 % (47.0-73.0); PLATELET COUNT AUTOMATED 231 10*3/uL (130-400); RED BLOOD COUNT 4.43 10*6/uL (4.50-5.90); RED CELL DISTRI WIDTH 13.9 % (0-14.5); WHITE BLOOD COUNT 13.8 10*3/uL (4.8-10.8)
--- NOTE | 2019-06-01 07:50 | NUR ---
PHYSICAL THERAPY Patient seen this am 1:1 for therapy visit and was supine in bed upon therapist arrival. Patient identified by name / and reports feeling tired / weak this morning. Patient presented with continuous IV treatment and transfers supine to sit EOB with CGA x 1. Patient performed sit to stand CGA and ambulated FIRMWARE ENGINEER/CGA, 30'x2, demonstrating impulsive behaviour with sudden change in gait velocity / "wobbly" gait pattern. Patient also needed v/c for improved safety awareness to prevent risk of falling. Patient returned to bedside chair and remained with call light, tray table, cell phone and body alarm. Will continue per POC as tolerated, total treatment time 16 minutes. Tony Childress, CREW LEAD
--- NOTE | 2019-06-01 07:50 | NUR ---
OT NOTE Pt was seen this A.M. 1:1 for 20 minute OT session. Upon arrival pt was supine in bed. Pt identified by name and and had no complaints at this time. Pt's resting heart rate was 99 bpm. Pt transferred supine to sit EOB with SBA. While sitting EOB pt donned B socks with SBA. Sit to stnad completed from bed level with CGA for safety followed by functional mobility into the bathroom with CGA due to bouts of unsteady gait. Throughout pt required constant verbal prompts and education for slowing down due to being impulsive and presenting with poor safety awareness, pt had poor carry over. Pt transferred on/off standard commode with CGA and use of grab bar for UE support. Clothing management completed with CGA and toilet hygiene completed with supervision while seated. Pt then stood sink side while washing his hands with CGA, pt continued to present with poor safety awareness and being impulsive. Pt was left sitting upright in the recliner with call light in hand, tray table in place, and body alarm activated for safety. Continue with rec D/C plan to SNF. [facility]
[2019-06-01 07:51] LABS: BUN 23 mg/dl (7-24); CHLORIDE 104 mmol/L (98-107); CREATININE 1.14 mg/dL (0.70-1.30); POTASSIUM 4.4 mmol/L (3.5-5.1); SODIUM 139 mmol/L (136-145)
[2019-06-01 08:00] VITALS: BP 92/50
--- NOTE | 2019-06-01 10:11 | NUR ---
psychiatric assessment: met with client who is known to me for many years. he has a hx of bipolar disorder. today i am seeing him to assess for suicidal ideation. client has no psychosis. he is a &0x3, he ie pleasant, he reports that he remembers me. client denies any suicidal ideation to me, he reports that he is ready to go to rehab and gain back hus strength, this client poses no risk to himself or anyone else, he is not suicidal. he can be dc to [facility] when medically stable and ready.
--- NOTE | 2019-06-01 11:39 | NUR ---
PATIENT RELAXED IN ROOM. ORIENTED X3. DENIES NEEDS AT THIS TIME. CALL LIGHT IS WITHIN REACH.
[2019-06-01 12:00] VITALS: BP 149/85
[2019-06-01] MEDS ORDERED: LEVAQUIN750 M1 PO (12:00)
[2019-06-01] MEDS ORDERED: ARIPIPRAZOLE2 MG PO (12:03)
[2019-06-01] MEDS ORDERED: ATIVAN1 MG PO (12:03)
--- NOTE | 2019-06-01 13:25 | NUR ---
Patient is discharged to [facility]. Transportation scheduled for 3 PM with the [facility]ulette. NH, nursing and executive steward notified. Also called person to notify, Michelle and notified her as well.
--- NOTE | 2019-06-01 15:20 | NUR ---
Discharge instructions reviewed with patient/family. Patient receptive and verbalizes understanding. Follow-up care arranged. Written instructions given to patient/family. HE[place]OCK DISCONTINUED. PATIENT TAKEN OFF FLOOR BY WHEELCHAIR AND TRANSPROTED VIA [facility]. REPORT GIVEN TO RECEIVING NURSE. SHUKRI DISLA
--- NOTE | 2019-06-01 16:37 | NUR ---
PHYSICAL THERAPY CO-SIGN I approve of the Phyical Therapy notes written above. Britney Chopra PT
--- NOTE | 2019-06-01 16:40 | NUR ---
OCCUPATIONAL THERAPY CO-SIGN I approve of the Occupational Therapy notes written above. ELBERT MEJÍA OTR/Preeti
== END 2019-06-01 15:58 | disposition other institution (70) | DRG 871 ==
LOC: ED 07:44 → 4E 09:51 → EDHOLD 09:51 → 4E 10:10
PROVIDERS: Emergency Medicine; Internal Medicine; Registered Nurse; ADMIT Family Medicine
DX: A41.9 Sepsis, unspecified organism (principal); J18.9 Pneumonia, unspecified organism; J44.1 Chronic obstructive pulmonary disease with (acute) exacerbation; E44.0 Moderate protein-calorie malnutrition; J44.0 Chronic obstructive pulmonary disease with (acute) lower respiratory infection; F33.9 Major depressive disorder, recurrent, unspecified; R65.20 Severe sepsis without septic shock; J20.9 Acute bronchitis, unspecified; I10 Essential (primary) hypertension; E78.2 Mixed hyperlipidemia; I73.9 Peripheral vascular disease, unspecified; C61 Malignant neoplasm of prostate; D64.9 Anemia, unspecified; R73.9 Hyperglycemia, unspecified; E83.41 Hypermagnesemia; Z87.01 Personal history of pneumonia (recurrent); Z89.421 Acquired absence of other right toe(s); Z87.891 Personal history of nicotine dependence; Z84.1 Family history of disorders of kidney and ureter; Z82.49 Family history of ischemic heart disease and other diseases of the circulatory system; Z88.8 Allergy status to other drugs, medicaments and biological substances; Z79.899 Other long term (current) drug therapy; Z79.82 Long term (current) use of aspirin; Z68.24 Body mass index [BMI] 24.0-24.9, adult

== ENCOUNTER 2019-12-05 08:57 | Inpatient (IN) | payer OTHER, MEDICAID ==
[~2019-12-05] VITALS: Ht 177.8 cm; Wt 77.1 kg
[~2019-12-05 08:57] MED LIST changes: +ARIPIPRAZOLE2 MG PO; +LEVAQUIN750 M1 PO; +VITAMIN D3125 MCG PO; -VITAMIN D5000 UNIT PO
[2019-12-05 09:04] VITALS: BP 135/74
--- NOTE | 2019-12-05 09:22 | NUR ---
GAVE PT PILLOW AND 2 WARM BLANKETS AND BOTTLE OF WATER PT CALM STATED HE WOULD LIKE TO SLEEP PT BED HEIGHT ADJUSTED FOR COMFORT LIGHTS TURNED LOW BED IN LOWEST POSITION BED RAILS UP X 2 CALL LIGHT IN REACH PT IN ROOM 4 DOOR OPEN PT VISABLE FROM NURSE STATION
--- NOTE | 2019-12-05 09:55 | NUR ---
PT STATED HE WAS HUNGRY PT GIVEN BOX LUNCH
[2019-12-05 10:10] LABS: BASO % 0.2 % (0.0-1.0); EOS # 0.1 10*3/uL (0.0-0.4); EOS % 0.7 % (1.0-4.0); HEMATOCRIT 37.5 % (42.0-52.0); LYMPH # 0.4 10*3/uL (1.3-4.4); LYMPH % 5.5 % (27.0-41.0); MEAN CELL VOLUME 84.3 fl (80.0-94.0); MEAN CORPUSCULAR HGB 27.4 pg (27.0-31.0); MEAN CORPUSCULAR HGB CONC 32.5 g/dl (33.0-37.0); MEAN PLATELET VOLUME 8.9 fl (9.6-12.3); MONO # 0.5 10*3/uL (0.1-1.0); MONO % 6.2 % (3.0-9.0); NEUT % 87.2 % (47.0-73.0); PLATELET COUNT AUTOMATED 228 10*3/uL (130-400); RED BLOOD COUNT 4.45 10*6/uL (4.50-5.90); RED CELL DISTRI WIDTH 13.7 % (0-14.5)
[2019-12-05 10:28] LABS: ALBUMIN 3.9 gm/dl (3.1-4.5); ALKALINE PHOSPHATASE 101 U/L (45-117); BUN 18 mg/dl (7-24); CHLORIDE 107 mmol/L (98-107); CREATININE 1.31 mg/dL (0.70-1.30); POTASSIUM 3.9 mmol/L (3.5-5.1); SGOT/AST 25 IU/L (3-35); SGPT/ALT 24 U/L (12-78); SODIUM 140 mmol/L (136-145); TOTAL PROTEIN 6.9 gm/dL (6.4-8.2)
[2019-12-05 10:31] LABS: ACETAMINOPHEN (TYLENOL) < 5.0 ug/ml (10-30); TROPONIN I < 0.015 ng/ml (<0.045)
--- NOTE | 2019-12-05 10:52 | NUR ---
psychiatric assessment: client is known to me, he has a hx of bipolar disorder. he has been well maintained in the community, where he resides alone, but does have care takers as he states off and on. clients brother Ramesh, is possibly his POA. this client presents after calling 911 because he was having suicidal thoughts. client is A&ox4, he is verbal and pleasant. he reports that he has been feeling depressed for awhile and he tries to sleep 24/7 so he doesnt have to feel, he said that he was having thoughts of suicide with a plan to take a bottle of pills. he has a hx of previous admissions to inpatient psych. he reports that he goes to [facility] and he sees anni trevino cnp, she is trying to take him off of his ativan because he admits that he over uses it and he has been decreasing over a week now. he does take trintellix and gets an invega shot once a mo and per him had it about a week ago. he denies any sensory disturbance and none is evidenced and no delusions are voiced, he is calm. he says that one of his stressors is that he broke his glasses and they have not been able to fix them. he continues to voice suicidal ideations and he could benefit from an inpatient mental health admission. he denies any substance abuse. when all of his labs are back i will make a referral. i discussed with radha trevino. chon- who is caring for him here. s
[2019-12-05 11:26] LABS: URINE AMPHETAMINES < 1000 (1000ng/ml); URINE BARBITURATES < 200 (200ng/ml); URINE BENZODIAZEPINES < 200 (200ng/ml); URINE CANNABINOIDS (THC) < 50 (50ng/ml); URINE COCAINE < 300 (300ng/ml); URINE METHADONE < 300 (300ng/ml); URINE OPIATES < 300 (300ng/ml); URINE PHENCYCLIDINE < 25 (25ng/ml)
[2019-12-05 11:30] LABS: BILIRUBIN NEGATIVE (NEGATIVE); BLOOD NEGATIVE (NEGATIVE); CLARITY CLEAR (CLEAR); COLOR YELLOW (YELLOW); GLUCOSE NEGATIVE (NEGATIVE); KETONE NEGATIVE (NEGATIVE)
[2019-12-05 11:31] LABS: LEUKO ESTERASE NEGATIVE (NEGATIVE); NITRITE NEGATIVE (NEGATIVE); UROBILINOGEN 0.2 E.U./dl (0.2-1.0)
--- NOTE | 2019-12-05 13:47 | NUR ---
HAS EATEN LUNCH. RESTING IN NO DISTRESS. CALL LIGHT IN REACH.
--- NOTE | 2019-12-05 15:20 | NUR ---
HAS BEEN ACCEPTED BY [facility].
--- NOTE | 2019-12-05 16:07 | NUR ---
[facility] HERE TO TRANSPORT PT UPSTAIRS.
--- NOTE | 2019-12-05 16:10 | NUR ---
SENTHIL MORRELL a 74 year old M admitted via wheel chair from the EMERGENCY ROOM as a voluntary admission. Arrived on unit at 1610. ALLERGIES: HALDOL AND GEODON. Vital signs are: [id number] 119/80. The client signed the following forms with stated understanding: Authorization For The Release of Medical Information, Clothing List, Consent to Voluntary Admission and Hospitalization, Consent and Release Forms/Receipt of Rights, Acknowledgement of Advance Directive Information, Behavioral Health Consent Form, and Informed Consent of Medications. [facility]. A search was conducted and hazardous articles were removed. Client was oriented to the unit. NILTON CORNELIUS
[2019-12-05] MEDS ORDERED: FLOMAX0.4 MG PO (16:23)
[2019-12-05 16:24] VITALS: BP 119/80
[2019-12-05] MEDS ORDERED: PEPCID20 MG PO (16:26)
[2019-12-05] MEDS ORDERED: INVEGA SUSTENN117 MG IM (16:47)
--- NOTE | 2019-12-05 16:57 | NUR ---
Call placed to hospitalist cell number one, spoke to , made aware of new admission for medical consult. states to place consult under .
--- NOTE | 2019-12-05 17:05 | NUR ---
COVID19 swab completed in ED prior to [facility] admission.
--- NOTE | 2019-12-05 17:15 | NUR ---
and on unit to see pt at this time
--- NOTE | 2019-12-05 18:27 | NUR ---
COVID 19 SWAB COLLECTED IN ER.
[2019-12-05 19:06] VITALS: BP 113/64
[2019-12-05 20:18] VITALS: BP 113/64
--- NOTE | 2019-12-06 01:14 | NUR ---
P-DEPRESSED MOOD I-ASSESS ORIENTATION, MOOD, AND BEHAVIOR. PROVIDE 1:1 WITH THERAPEUTIC INTERVENTIONS. PROVIDE SUPPORT. ASSESS FOR SI, INTENT, AND PLAN. ENCOURAGE MEDICATION COMPLIANCE AND EDUCATE. MONITOR SLEEP. R-PT ALERT AND ORIENTED X4. PT CALM, ISOLATIVE TO ROOM AND BED THIS HS. DURING 1:1 PT STATED HE IS JUST FEELING DEPRESSED LATELY AND WANTS TO FEEL BETTER". PT DENIES SI/HI, HALLUCINATIONS, OR DELUSIONS. PT CONTRACTED FOR SAFETY. PT RECEPTIVE TO SUPPORT PROVIDED. PT ALSO SPOKE TO HIS COSTUME SHOP COORDINATOR ON THE PHONE AND STATED THAT IT HELPED HIM FEEL BETTER WELL. PT MEDICATION COMPLIANT WITHOUT DIFFICULTY. NO PHYSICAL COMPLAINTS NOTED. PT AMBULATORY WITH A STEADY GAIT, INDEPENDENT IN ADL'S WITH PROMPTING, CONTINENT OF BOWEL AND BLADDER. PT CURRENTLY LAYING DOWN WITH EYES CLOSED, RESPIRATIONS EASY AND REGULAR, NO SIGNS OR SYMPTOMS OF DISTRESS NOTED. P-CONTINUE TO MONITOR MOOD AND BEHAVIORS. MAINTAIN Q 15 MIN CHECKS AND PRN FOR SAFETY.
[2019-12-06 06:44] LABS: BASO % 0.5 % (0.0-1.0); EOS # 0.3 10*3/uL (0.0-0.4); EOS % 3.7 % (1.0-4.0); HEMATOCRIT 36.1 % (42.0-52.0); LYMPH # 0.9 10*3/uL (1.3-4.4); LYMPH % 12.2 % (27.0-41.0); MEAN CELL VOLUME 86.6 fl (80.0-94.0); MEAN CORPUSCULAR HGB 28.3 pg (27.0-31.0); MEAN CORPUSCULAR HGB CONC 32.7 g/dl (33.0-37.0); MEAN PLATELET VOLUME 9.2 fl (9.6-12.3); MONO # 0.6 10*3/uL (0.1-1.0); MONO % 8.8 % (3.0-9.0); NEUT # 5.4 10*3/uL (2.3-7.9); NEUT % 74.7 % (47.0-73.0); PLATELET COUNT AUTOMATED 241 10*3/uL (130-400); RED BLOOD COUNT 4.17 10*6/uL (4.50-5.90); RED CELL DISTRI WIDTH 13.6 % (0-14.5); WHITE BLOOD COUNT 7.3 10*3/uL (4.8-10.8)
--- NOTE | 2019-12-06 06:49 | NUR ---
Patient slept approx. 6 hours throughout shift. Q 15 minute safety checks continued and maintained.
[2019-12-06 07:06] LABS: ALBUMIN 3.6 gm/dl (3.1-4.5); ALKALINE PHOSPHATASE 98 U/L (45-117); BUN 21 mg/dl (7-24); CHLORIDE 109 mmol/L (98-107); CHOLESTEROL 127 mg/dL (<200); CREATININE 1.22 mg/dL (0.70-1.30); HDL CHOLESTEROL 70 mg/dl (40-60); LDL CHOLESTEROL 41 mg/dL (9-159); POTASSIUM 4.2 mmol/L (3.5-5.1); SGOT/AST 12 IU/L (3-35); SGPT/ALT 20 U/L (12-78); SODIUM 142 mmol/L (136-145); TOTAL PROTEIN 6.5 gm/dL (6.4-8.2); TRIGLYCERIDES 80 mg/dl (<150); VLDL CHOLESTEROL 16 mg/dL (6-40)
[2019-12-06 07:27] VITALS: BP 110/68
[2019-12-06 07:36] LABS: VITAMIN D, 25-HYDROXY 63.1 ng/mL (30-100)
--- NOTE | 2019-12-06 08:30 | NUR ---
Treatment Plan meeting was held this a.m. with Dr. Barrera via telephone, RN, AT, SURVEYOR HELPER ROD-S and director of infection prevention. Plan for discharge Early to Middle of next week.
--- NOTE | 2019-12-06 09:26 | NUR ---
rounded via telehealth. Medication changes made as per , orders read back and verified.
--- NOTE | 2019-12-06 11:46 | NUR ---
AM GROUP/LULA PT ATTENDED MORNING GROUP THERAPY AND PARTICIPATED IN ALL ACTIVITIES. PT EXHIBITED NO ADVERSE BEHAVIORS WHILE IN GROUP. PT WAS VERY FOCUSED AND KNOWLEDGABLE
--- NOTE | 2019-12-06 11:50 | NUR ---
AM GROUP/TRIVIA PT DID NOT ATTEND MORNING GROUP THERAPY. PT WAS IN BED RESTING.
--- NOTE | 2019-12-06 13:44 | NUR ---
SPOKE WITH JEREMY AND PROVIED ADMISSION CLINICALS. IP APPROVED FROM 12/04-12/10 WITH NEXT REVIEW DATE 12/10 WITH UBALDO AT [phone].
--- NOTE | 2019-12-06 15:12 | NUR ---
Shift chart check completed.
--- NOTE | 2019-12-06 15:46 | NUR ---
GROUP B / TARAH PT CHOSE NOT TO ATTEND GROUP THERAPY BUT REQUESTED WRITING MATERIALS TO [facility]. PT REMAINED IN A QUIET ROOM TO WRITE.
--- NOTE | 2019-12-06 15:55 | NUR ---
P: DEPRESSED MOOD I: ONE ON ONE FOR EMOTIONAL SUPPORT, ENCOURAGE GROUP SESSION. R: EFFECTIVE. PATIENT IS ALERT TO PERSON, PLACE, TIME AND SITUAITON; ABLE TO VOICE NEEDS. MOOD IS DEPRESSED. DENIES ANY HALLUCINATIONS, DELUSIONS, HI/SI OR PAIN. INDEPENDENT WITH ACTIVITIES OF DAILY LIVING, CONTINENT OF BOWEL AND BLADDER. SET UP FOR MEALS, INTAKES ARE ARE GOOD WITH ADEQUATE FLUIDS. MEDICATION COMPLAINT. Q 15 MINUTE SAFETY CHECKS. INTERACTIVE WITH STAFF AND OTHER PATIENTS. P: CONTINUE TO MONITOR FOR THOUGHT OF SI, MOOD AND MEAL INTAKES. PROVIDE ONE ON ONE FOR EMOTIONAL SUPPORT AND ENCOURGE ACTIVITIES AND GROUP SESSION.
[2019-12-06 19:24] VITALS: BP 92/56
[2019-12-06 20:03] VITALS: BP 126/82
--- NOTE | 2019-12-07 00:35 | NUR ---
P-ANXIETY, PT STATED "SOMETIMES I GET SCARED TO GO TO SLEEP AT NIGHT BECAUSE IM AFRAID I MIGHT IN MY SLEEP" I-PROVIDE 1:1 WITH THERAPEUTIC INTERVENTIONS. PROVIDE SUPPORT. REASSURANCE OF SAFETY. ENCOURAGE MEDICATION COMPLIANCE AND EDUCATE. MONITOR SLEEP. R-PT RECEPTIVE TO INTERVENTIONS, CALM DEMEANOR NOTED AFTER SPEAKING WITH THIS NURSE. PT ALERT AND ORIENTED X4, PLEASANT. INTERACTIVE WITH PEERS IN THE DINING ROOM FOR HS SNACK, WATCHED A MOVIE. PT DENIES SI/HI, HALLUCINATIONS, OR PAIN. MEDICATION COMPLIANT WITHOUT DIFFICULTY AFTER REVIEW. PT AMBULATORY WITH A STEADY GAIT, INDEPENDENT IN ADL'S, CONTINENT OF BOWEL AND BLADDER. NO DISTRESS NOTED. P-CONTINUE TO MONITOR MOOD AND BEHAVIORS. MAINTAIN Q 15 MIN CHECKS AND PRN SAFETY.
--- NOTE | 2019-12-07 05:45 | NUR ---
24 HOUR CHART CHECK COMPLETED.
--- NOTE | 2019-12-07 05:48 | NUR ---
PATIENT SLEPT APPROX 7 HOURS UNINTERRUPTED.
[2019-12-07 08:07] VITALS: BP 111/75
--- NOTE | 2019-12-07 08:48 | NUR ---
DR MARTINS ON UNIT TO ASSESS PT, UPDATE PROVIDED.
--- NOTE | 2019-12-07 14:58 | NUR ---
P: PT ISOLATIVE TO ROOM THROUGHOUT THE DAY, APPEARS ANXIOUS AND RESTLESS AT TIMES WHEN HE DOES COME OUT OF HIS ROOM, PT STATES "I'M JUST TIRED OF BEING THE WAY I AM." I: PROVIDE EMOTIONAL SUPPORT AND 1:1 FOR PT TO VOICE FEELINGS, ENCOURAGE GROUP PARTICIPATION AND SOCIALIZATION, OFFER DIVERSIONAL ACTIVITIES, ENCOURAGE MED COMPLIANCE AND PROVIDE MED EDUCATION R: PT ALERT TO PERSON, PLACE, TIME AND SITUATION. PT MED COMPLIANT WITHOUT DIFFICULTY, MED EDUCATION PROVIDED. PT CONTINUES TO ISOLATE TO HIS ROOM THROUGHOUT THE DAY, HE COMES OUT FOR MEALS AND PERIODICALLY COMES TO THE NURSES STATION, HE APPEARS ANXIOUS AND RESTLESS. WHEN OFFERED ACTIVITES AND ASKED WHAT HE LIKES TO DO PT STATES "I DON'T DO ANYTHING, I JUST LAY AROUND AT HOME." PT REFUSES ALL ATTEMPTED OF ACTIVITES. NO HALLUCINATIONS OR DELUSIONS NOTED. PT AMBUALTORY THROUHGOUT UNIT, GAIT STEADY. PT CONTINENT OF BOWEL AND BLADDER. P: MONITOR PT BEHAVIORS ON Q15 MIN SAFETY CHECKS, ENCOURAGE MED COMPLIANCE AND PROVIDE MED EDUCATION, ENCOURAGE GROUP PARTICIPATION AND SOCIALIZATION, PROVIDE EMOTIONAL SUPPORT AND 1:1 FOR PT TO VOICE FEELINGS.
--- NOTE | 2019-12-07 18:18 | NUR ---
SHIFT CHART CHECK COMPLETED.
[2019-12-07 20:00] VITALS: BP 131/72
--- NOTE | 2019-12-07 21:03 | NUR ---
IN BED. REFUSED SNACK AND 1:1 TIME. MEDICATION COMPLIANT. COVERED HEAD WITH BLANKET. WILL MONITOR FOR CHANGES IN MOOD/BEHAVIOR AND Q15 MINUTES AND PRN FOR SAFETY
--- NOTE | 2019-12-08 02:00 | NUR ---
24 HR chart check completed.
[2019-12-08 07:32] VITALS: BP 117/86
--- NOTE | 2019-12-08 08:48 | NUR ---
DR MARTINS ON UNIT TO ASSESS PT, UPDATE PROVIDED.
--- NOTE | 2019-12-08 18:25 | NUR ---
P: PT ISOLATIVE TO ROOM AT TIMES THROUGHOUT THE DAY. I: PROVIDE EMOTIONAL SUPPORT AND 1:1 FOR PT TO VOICE FEELINGS, ENCOURAGE MED COMPLIANCE AND PROVIDE MED EDUCATION, ENCOURAGE GROUP PARTICIPATION AND SOCIALZIATION R: PT ALERT TO PERSON, PLACE, TIME AND SITUATION. PT MED COMPLIANT WITHOUT DIFFICULTY. PT EMAINS ISOLATIVE AT TIMES, MORE INTERACTIVE THAN PREVIOUSLY, PT STATES "I THINK I AM DOING BETETR." NO HALLUCINATIONS OR DELUSIONS NOTED. PT DENEIS ANY SUICIDAL THOUGHTS. PT AMBUALTORY THROUGHOUT UNIT, GAIT STEADY. PT CONTINENT OF BOWEL AND BLADDER. P: MONITOR PT BEHAVIORS ON Q15 MIN SAFETY CHECKS, ENCOURAGE MED COMPLIANCE AND PROVIDE MED EDUCATION, ENCOURAGE GROUP PARTICIPATION AND SOCIALIZATION, PROVIDE EMOTIONAL SUPPORT AND 1:1 FOR PT TO VOICE FEELINGS.
[2019-12-08 19:32] VITALS: BP 109/66
--- NOTE | 2019-12-08 21:07 | NUR ---
CAME DOWN FOR SNACK AND WATCHED ABOUT 1/2 HOUR OF MOVIE. REVIEWED ALL MEDICATIONS AND QUESTIONS ANSWERED. BROTHER CALLED FOR UPDATE AND RELAYED TO CLIENT. DENIES S/I AT THIS TIME AND CONSTRACTS FOR SAFETY.
--- NOTE | 2019-12-09 03:02 | NUR ---
24 HR chart check completed.
--- NOTE | 2019-12-09 06:52 | NUR ---
PACING UP AND DOWN CAPONE. ONE TIME SAYING HE IS GOING TO BED. THEN HE IS WAITING FOR BREAKFAST. THEN SAID E IS GOING TO BED AND DOESN'T WANT BREAKFAST. WILL CONTINUE TO MONITOR
[2019-12-09 07:29] VITALS: BP 114/72
--- NOTE | 2019-12-09 11:45 | NUR ---
DR HUSAIN ON UNIT TO ASSESS PT, UPDATE PROVIDED.
--- NOTE | 2019-12-09 13:25 | NUR ---
P: PT ISOLATIVE TO ROOM AT TIMES THROUGHOUT THE DAY, WHEN PT IS UP HE APPEARS ANXIOUS AND REQUIRES MUCH REASSURANCE THAT HE IS OK I: PROVIDE EMOTIONAL SUPPORT AND 1:1 FOR PT TO VOICE FEELINGS, ENCOURAGE MED COMPLIANCE AND PROVIDE MED EDUCATION, PROVIDE EMOTIONAL SUPPORT AND 1:1 FOR PT TO VOICE FEELINGS, ENCOURAGE GROUP PARTICIPATION AND SOCIALIZATION R: PT ALERT TO PERSON, PLACE, TIME AND SITUATION. PT MED COMPLIANT WITHOUT DIFFICUTLY, MED EDUCATION PROVIDED. PT CALM, CONTINUES TO ISOLATE TO HIS ROOM, REFUSING TO PARTICIPATE IN GROUPS/ACTIVITIES. PT SLIGHTLY RECEPTIVE TO ASSURANCE THAT HE IS DOING OK, PT STATES "ARE YOU SURE? YOU REALY THINK SO." NO HALLUCINATIONS OR DELUSIONS NOTED. PT DENIES ANY SUICIDAL THOUGHTS OR BEHAVIORS. PT AMBUALTROY THROUGHOUT UNIT, GAIT STEADY. PT CONTINENT OF BOWEL AND BLADDER. P: MONITOR PT BEHAVIORS ON Q15 MIN SAFETY CHECKS, PROVIDE EMOTIONAL SUPPORT AND 1:1 FOR PT TO VOICE FEELINGS, ENCOURAGE MED COMPLIANCE AND PROVIDE MED EDUCATION, ENCOURAGE GROUP PARTICIPATION AND SOCIALIZATION, MCONTINUE TO PROVIDE REASSURANCE THAT IS HE OK.
[2019-12-09 19:44] VITALS: BP 130/78
--- NOTE | 2019-12-09 22:05 | NUR ---
P-ISOLATIVE, DEPRESSED MOOD I-REDIRECTION WITH 1:1 THERAPEUTIC INTERVENTIONS AND PRESENT REALITY. EDUCATE AND ENCOURAGE MEDICATION COMPLIANCE R-PATIENT MEDICATION COMPLIANT AT HS. PATIENT REFUSED NOURISHMENT BUT PROVIDED FLUIDS AT HS. PATIENT ISOLATIVE IN ROOM THIS SHIFT. PATIENT WITH NO INTERACTION WITH PEERS THIS SHIFT. PATIENT WITH DEPRESSED MOOD AND DID NOT WANT TO DISCUSS CURRENT MOOD. PATIENT REASSURED THAT NURSING STAFF IS AVAILABLE AT ANY TIME TO TALK. PATIENT STATING "THANK YOU. I MAY COME OUT LATER TO TALK". PATIENT WITH NO HALLUCINATIONS OR DELUSIONS. PATIENT WITH NO SUICIDAL OR HOMICIDAL IDEATIONS. P-CONTINUE TO ENCOURAGE MEDICATION COMPLIANCE, CONTINUE TO PRESENT REALITY, ENCOURAGE GROUP THERAPY WHILE AWAKE
--- NOTE | 2019-12-10 05:15 | NUR ---
PATIENT SLEPT 7 HOURS OF INTERRUPTED SLEEP THROUGHOUT SHIFT. Q 15 MINUTE CHECKS MAINTAINED. 24 HR chart check completed.
[2019-12-10 07:38] VITALS: BP 124/65
--- NOTE | 2019-12-10 09:00 | NUR ---
Treatment Plan meeting was held this a.m. with Dr. Barrera via telephone, GER Logan RN, SHAFT REPAIRER-S and Hide Or Skin Buffer. Plan for discharge at the end of the week. Pt. will return home.
--- NOTE | 2019-12-10 12:00 | NUR ---
Shift chart check completed.
--- NOTE | 2019-12-10 13:00 | NUR ---
Patient refused head to toe skin assessment.
--- NOTE | 2019-12-10 13:49 | NUR ---
Met with pt individually this AM. Pt stated that he needed help. When asked to explain further, pt stated, "to live." Pt was visibly anxious as he moved continually in the chair. Pt shared that he feels depressed and that all he wants to do is sleep when he is at home. However, immediately after stating this, pt asked if this proposal lead writer could give him some kind of medicine that would help him sleep for two days. When asked the significance of sleeping for two days, pt stated, "I guess it doesn't matter. I'd still be depressed." This proposal lead writer asked pt to think about previous coping strategies that pt had used. Pt then stated that he didn't want to talk any longer and left the room.
--- NOTE | 2019-12-10 13:59 | NUR ---
P- Depressed, Isolative I- Assess mood, orientation, SI/HI, hallucinations, delusions or pain. Provide meds on time with education on each. Encourage to attend and participate in group therapy for socialization and emotional support. 1:1 therapeutic interaction for emotional support and ventilation of feelings provided. Educate on coping techniques and proper people to address issues to get answers for problems. Provide low stimuli environment. R- Alert and oriented x4. Mood depressed. Denies SI/HI, intent or plan. Admitted to having suicidal thoughts prior to admission with no plan or access to means. Verbal contract for safety while on the unit. Denies hallucinations, delusions or pain. No s/s of interacting with internal stimuli. No s/s of paranoid or delusional thought process noted. No s/s of distress noted, resps even and unlabored on room air. Remains isolative to room, comes out for meals. Remains isolative to self when out in the dining room. 1:1 interacation ineffective. Pt stated that he was having trouble with his glasses. When interacting with pt and providing the appropriate people to assist with his issue, pt stated "Okay. Will you please leave me alone now". Reassured pt that he can come to any staff if he wants to talk. Medication compliant with no difficutlies. P- Assess mood, orientation, SI/HI, intent or plan, hallucinations, delusions or pain. Plan to continue treatment plan. Verbal contract for safety. 1:1 interaction, reassurance, redirection, and low stimuli environment when needed. Encourage to attend/particiate in group therapy. Q15 minute checks maintained for safety.
--- NOTE | 2019-12-10 19:48 | NUR ---
24 HR chart check completed.
[2019-12-10 20:00] VITALS: BP 126/74
--- NOTE | 2019-12-10 23:19 | NUR ---
Patient alert and oriented x4. Mood isolative and depressed. Denies any SI/HI, delusions,or hallucinations. No overt s/s of any responding to internal stimuli noted at this time. Patient refused to talk about his depressed feelings at this time. Patient compliant with HS medications without any difficulty. Provided 1:1 for emnotional support but patient refused. Plan to continue to encourage medication compliance. Also will continue to offer emotional support. Will continue to monitor moods/behaviors. Q 15 minute safety checks continued and maintained. See [facility] flowsheet for further documentation.
--- NOTE | 2019-12-11 05:48 | NUR ---
Patient slept approx. 8.5 hours throughout shift. Q 15 minute safety checks continued and maintained.
[2019-12-11 07:35] VITALS: BP 134/86
--- NOTE | 2019-12-11 09:43 | NUR ---
Treatment Plan meeting was held this a.m. with GER Logan, RN, AT, JAIR-S and Senior Technical Specialist. Plan for discharge /Tuesday with return Home.
--- NOTE | 2019-12-11 11:59 | NUR ---
AM GROUP PT ATTENDED MORNING GROUP THERAPY AND PARTICIPATED IN THE GROUP DISCUSSION. PT WAS FOCUSED BUT DID SEEM A LITTLE ANXIOUS.
--- NOTE | 2019-12-11 15:08 | NUR ---
KRISSY BARBOUR CNP ON UNIT TO ASSEES PATIENT.
--- NOTE | 2019-12-11 15:46 | NUR ---
PM GROUP PT ATTENDED AFTERNOON GROUP THERAPY AND PARTICIPATED BY DOING A WORDSEARCH AND SOCIALIZING WITH PEERS. PT EXHIBITED NO ADVERSE BEHAVIORS WHILE IN GROUP.
--- NOTE | 2019-12-11 17:54 | NUR ---
PT ASKING ABOUT WHEN HE WILL BE GOING HOME. PT STATES HE IS READY TO GO. PT STATES HE IS SAD BECAUSE HE HAS TO STAY HERE LONGER. 1:1 PROVIDED FOR THERAPEUTIC COMMUNICATION. PT STATED HE WAS GOING TO LAY DOWN UNTIL IT WAS TIME TO EAT. WILL MONITOR BEHAVIORS WITH Q15 SAFETY CHECKS.
[2019-12-11 19:30] VITALS: BP 112/66
--- NOTE | 2019-12-11 19:33 | NUR ---
Patient came to this nurse and asked if he can get an antianxiety pill. Patient said " I need an antianxiety pill. I think I am having a panic attack and can't take it anymore." This nurse asked if he needed to talk but patient said "no, I just want that pill and I will be fine.". Medicated with Ativan po prn given for increased anxiety/agitation. Will continue to monitor moods/behaviors.
--- NOTE | 2019-12-11 21:36 | NUR ---
Patient alert and oriented x4. Mood isolative and depressed. Denies any SI/HI, delusions,or hallucinations. No overt s/s of any responding to internal stimuli noted at this time. Patient refused to talk about his depressed feelings at this time. Patient compliant with HS medications without any difficulty. Provided 1:1 for emotional support but patient refused. Plan to continue to encourage medication compliance. Also will continue to offer emotional support. Will continue to monitor moods/behaviors. Q 15 minute safety checks continued and maintained. See [facility] flowsheet for further documentation.
--- NOTE | 2019-12-12 06:17 | NUR ---
Patient slept approx. 8 hours throughout shift. Q 15 minute safety checks continued and maintained.
[2019-12-12 07:53] VITALS: BP 148/82
--- NOTE | 2019-12-12 08:30 | NUR ---
Treatment Plan meeting was held this a.m. with GER Logan, RN, AT, JAIR-S and Cloud Solutions Architect. Plan for discharge Tuesday with return home.
--- NOTE | 2019-12-12 11:34 | NUR ---
AM GROUP/ EXERCISE AND MUSIC APPRECIATION PT ATTENDED THE FIRST PART OF MORNING GROUP THERAPY AND PARTICIPATED IN THE EXERCISES. WHEN THE GROUP MOVED TO THE TABLE FOR THE DISCUSSION, PT STATED, "I NEED TO LEAVE" PT LEFT THE DAYROOM AND WENT TO HIS ROOM. PT DID NOT RETURN.
--- NOTE | 2019-12-12 15:39 | NUR ---
PM GROUP/ COLOR THERAPY AND BIRDHOUSES PT ATTENDED GROUP TO OBSERVE COLOR THERAPY VIDEO WITH MUCH ENCOURAGEMENT. PT SOON ASKED TO GO TO HIS ROOM AND LEFT FOR ABOUT AN HOUR. PT RETURNED AND ATTEMPTED TO PUT TOGETHER A BIRDHOUSE BUT BECAME FRUSTRATED AND LEFT THE DAYROOM AGAIN.
[2019-12-12 20:00] VITALS: BP 112/66
--- NOTE | 2019-12-12 20:00 | NUR ---
ISOLATES TO ROOM. REFUSED SNACK. MEDICATION COMPLIANT
--- NOTE | 2019-12-12 22:26 | NUR ---
ISOATIVE TO ROOM DUE TO ALOT OF NOISE AND ACTIVITY ON UNIT. DECLINED PM SNACK. DENIES SUICIDAL IDEATIONS AND CONTRACTS FOR SAFETY. STILL APPEARS TO BE GUARDED WITH SOMETHING FROM PAST. MEDICATION COMPLIANT AND HE DID HIS OWN ORAL CARE BEFORE WATER SHUT OFF. WILL MONITOR FOR CHANGES IN MOOD/BEHAVIOR AND Q15 MINUTES FOR SAFETY
--- NOTE | 2019-12-13 05:27 | NUR ---
SLEPT WELL PAST 2200PM. UP TO VOID. 24 HR chart check completed.
--- NOTE | 2019-12-13 05:29 | NUR ---
SLEPT WELL PAST 2200PM. UP TO VOID. 24 HR chart check completed.
--- NOTE | 2019-12-13 08:17 | NUR ---
rounded via telehealth at this time. Update given. Verbal orders recieved, read back and verified.
--- NOTE | 2019-12-13 08:30 | NUR ---
Treatment Plan meeting was held this a.m. with Dr. Barrera via telephone, RN, AT, DRAIN LAYER-S and Spice Fumigator in attendance. Plan for discharge Tuesday with return home and Follow up care arranged. Pt. requested Home Health at discharge due to new Medications will notify MD today.
[2019-12-13 08:52] VITALS: BP 112/54
--- NOTE | 2019-12-13 11:21 | NUR ---
Spoke with pt this AM. Pt wanted to confirm with RN that she was aware that he was out of his bed. Discussed this further. This law writer reminded pt that he voiced concern that he stays in his bed too long at home. Asked pt if he believes it will be different when pt discharges home. Pt stated that he plans on being out of his bed because he has things to do. Pt did voice concern about taking his medications correctly. Asked pt if he would like visiting nurse to follow him at home. Pt is agreeable to this.
--- NOTE | 2019-12-13 11:25 | NUR ---
on unit to see pt at this time.
--- NOTE | 2019-12-13 11:40 | NUR ---
AM GROUP PT WAS IN AND OUT OF THE DAYROOM DURING MORNING GROUP THERAPY. PT WAS VERY ANXIOUS AND COULD NOT SIT OR CONCENTRATE FOR MORE THAN A FEW MINUTES. PT ASKED TO WRITE ON A PAD OF PAPER BUT COULDN'T FOR VERY LONG. PT ASKED GROUP ENDED, "DO YOU THINK THEY WILL LET ME GO HOME SOON?" PT IS PREOCCUPIED WITH "DOING WHAT THEY TELL ME, TRYING TO GET OUT OF BED, SO I CAN GO HOME"
--- NOTE | 2019-12-13 14:10 | NUR ---
PM GROUP PT DID NOT ATTEND AFTERNOON GROUP THERAPY. PT WAS GETTING A SHOWER.
--- NOTE | 2019-12-13 15:04 | NUR ---
Met with pt individually this afternoon. Discussed pt's current status. Discussed pt returning home and coping strategies. Pt stated that he is feeling better and ready for discharge. Discussed discharging with visiting nurses and follow-up at [facility].
--- NOTE | 2019-12-13 16:42 | NUR ---
PATIENT IS ALERT TO PERSON, PLACE, TIME AND SITUATION; ABLE TO VOICE NEEDS. MOOD IS STABLE. DENIES BEING DEPRESSION. MORE SOCIAL AND INTERACTIVE WITH STAFF AND OUT OF BEDROOM-IMPROVEMENT NOTED. DENIES ANY HALLUCIANTIONS, DELUSIONS, HI/SI OR PAIN. MEDICATION COMPLAINT. Q 15 MINUTE SAFETY CHECKS. INDEPENDENT WITH ACTIVITIES OF DAILY LIVING, CONTINENT OF BOWEL AND BLADDER. SET UP FOR MEALS, INTAKES ARE GOOD WITH ADEQUATE FLUIDS. AMBULATORY WITH STEADY GAIT. CONTINUE TO MONITOR FOR SUICIDAL IDEATIONS AND MOOD. PROVIDE ONE ON ONE FOR EMOTIONAL SUPPORT AND ENCOURAGE SOCIAL INTERACTIONS AND ATTENDING GROUP SESSION.
--- NOTE | 2019-12-13 18:53 | NUR ---
Shift chart check completed.
[2019-12-13 19:40] VITALS: BP 141/87
--- NOTE | 2019-12-13 23:29 | NUR ---
P-ISOLATIVE I-REDIRECTION WITH 1:1 THERAPEUTIC INTERVENTIONS AND PRESENT REALITY. EDUCATE AND ENCOURAGE MEDICATION COMPLIANCE R-PATIENT MEDICATION COMPLIANT AT HS. PATIENT PROVIDED NOURISHMENT AND FLUIDS AT HS. PATIENT ISOLATIVE IN ROOM THIS SHIFT. PATIENT WITH LIMITED INTERACTION WITH PEERS THIS SHIFT. PATIENT ISOLATIVE TO ROOM THIS SHIFT. PATIENT WITH NO HALLUCINATIONS OR DELUSIONS. PATIENT WITH NO SUICIDAL OR HOMICIDAL IDEATIONS. P-CONTINUE TO ENCOURAGE MEDICATION COMPLIANCE, CONTINUE TO PRESENT REALITY, ENCOURAGE GROUP THERAPY WHILE AWAKE
--- NOTE | 2019-12-14 05:45 | NUR ---
PATIENT SLEPT 8 HOURS OF UNINTERRUPTED SLEEP THROUGHOUT SHIFT. Q 15 MINUTE CHECKS MAINTAINED. 24 HR chart check completed.
[2019-12-14 07:44] VITALS: BP 119/64
--- NOTE | 2019-12-14 09:00 | NUR ---
Treatment plan meeting was held this a.m. with Dr. Barrera via telephone, TOURIST AGENT Doreen, RN, AT, HOME HEALTH CAREGIVER-S and Guitar Repair Technician in attendance. Plan for discharge today with return home. Caregiver to transport with crab picker time 1:00 p.m. Pt. will have home health to follow for Medication management, CRACKER DOUGH MIXER, PT, OT and Nurse. Pt. will follow with [facility] and Primary care Follow Up with Cecil Abarca.
--- NOTE | 2019-12-14 09:24 | NUR ---
No adverse moods or behaviors noted this shift. Pt is alert and oriented x4. Denies hallucinations, delusions, or pain. No s/s of interacting with internal stimuli; No s/s of paranoid or delusional thought process; No s/s of distress noted, resps even and unlabored on room air. Pt is restless, isolative, and states being anxious about going home. 1:1 therapeutic interaction, encouragement of utilizing coping skills when feeling anxious, and identifying support systems effective for pt. Frequent reassurance and encouragement effective when pt becomes anxious. Eating and drinking adequately. Medication compliant. Ambulates with a steady gait. Voices needs and makes known. Q15 minute checks maintained for safety.
[2019-12-14] MEDS ORDERED: DULOXETINE HCL60 MG PO (09:43)
[2019-12-14] MEDS ORDERED: VITAMIN D3125 MC1 PO (09:43)
[2019-12-14] MEDS ORDERED: BENZTROPINE ME0.5 MG PO (09:43)
[2019-12-14] MEDS ORDERED: REXULTI3 MG PO (09:43)
--- NOTE | 2019-12-14 09:44 | NUR ---
Met with pt this AM. Pt stated that he is feeling anxious about discharging home. Discussed this further and empathized with pt. Discussed ways in which pt can help himself at home, as his primary concern is that he will return to staying in bed all of the time. Confirmed with pt that [facility] will follow pt at home.
--- NOTE | 2019-12-14 09:48 | NUR ---
Patient is discharging home today. Follow-up will be with Cecy Rendon NP at [facility]. Pt has a private caregiver who will resume assisting him. Also, a referral was made to [facility] for nursing services. While at [facility], pt's mood improved. Pt denies suicidal ideations. At first, pt was reluctant to participate in group programming. He was receptive to 1:1 counseling for short periods of time. Pt progressed to attending programming.
--- NOTE | 2019-12-14 11:35 | NUR ---
AM GROUP PT WAS IN AND OUT OF MORNING GROUP THERAPY. PT WAS PACING AND ANXIOUS TO BE DISCHARGED FROM THE UNIT THIS AFTERNOON. PT WAS IN GOOD SPIRITS AND STATED,"I JUST CAN'T WAIT TO GET OUT OF HERE"
--- NOTE | 2019-12-14 11:35 | NUR ---
Orders received from Dr. Calderon 12/13/2019 for Home Health. Pt. first Choice [facility]. [facility] is out of Network for Insurance. Referral faxed to [facility] and Coordinated with Dominga at [facility] and updated information concerning Pricing Clerk Michelle Baird and correct Phone number to coordinate visits.
--- NOTE | 2019-12-14 11:45 | NUR ---
Pt without any open areas or skin integrity issues noted.
--- NOTE | 2019-12-14 12:00 | NUR ---
Shift chart check completed.
--- NOTE | 2019-12-14 12:54 | NUR ---
Patient off the floor at this time via wheelchair escorted by mental health worker. Pt given reviewed discharge instructions, lock box belongings, and pt belongings. Reviewed medications and follow up appointments, encouraging compliance. Pt remains alert and oriented x4, no s/s of distress, resp even and unlabored on room air, steady gait. Pleasant upon interaction and expressing eagerness to go home.
== END 2019-12-14 12:54 | disposition home or self-care (01) | DRG 885 ==
LOC: ED 08:57 → 3N 15:26
PROVIDERS: Nurse Practitioner Family; ADMIT Psychiatry & Neurology Psychiatry
DX: F33.2 Major depressive disorder, recurrent severe without psychotic features (principal); N17.0 Acute kidney failure with tubular necrosis; R45.851 Suicidal ideations; R17 Unspecified jaundice; F41.1 Generalized anxiety disorder; E78.5 Hyperlipidemia, unspecified; I10 Essential (primary) hypertension; J44.9 Chronic obstructive pulmonary disease, unspecified; D64.9 Anemia, unspecified; R73.9 Hyperglycemia, unspecified; Z03.818 Encounter for observation for suspected exposure to other biological agents ruled out; Z85.46 Personal history of malignant neoplasm of prostate; Z95.820 Peripheral vascular angioplasty status with implants and grafts; Z89.421 Acquired absence of other right toe(s); Z84.1 Family history of disorders of kidney and ureter; Z82.49 Family history of ischemic heart disease and other diseases of the circulatory system; Z88.8 Allergy status to other drugs, medicaments and biological substances; Z79.899 Other long term (current) drug therapy

== ENCOUNTER 2019-12-22 13:21 | Emergency (ER) | payer OTHER, MEDICAID ==
[~2019-12-22] VITALS: Ht 177.8 cm; Wt 77.1 kg
[2019-12-22 13:32] VITALS: BP 115/79
== END 2019-12-22 13:35 | disposition home or self-care (01) ==
LOC: ED 13:21
DX: R55 Syncope and collapse (principal); Z79.82 Long term (current) use of aspirin; Z79.899 Other long term (current) drug therapy

== ENCOUNTER → 2019-12-22 | Emergency (ER) | payer OTHER, MEDICAID ==
[~2019-12-22] VITALS: Ht 177.8 cm; Wt 77.1 kg
[~2019-12-22] MED LIST changes: +BENZTROPINE ME0.5 MG PO; +DULOXETINE HCL60 MG PO; +FLOMAX0.4 MG PO; +PEPCID20 MG PO; +REXULTI3 MG PO; +VITAMIN D3125 MC1 PO
[2019-12-22 06:04] VITALS: BP 110/81
[2019-12-22 07:17] LABS: BASO # 0.1 10*3/uL (0.0-0.1); BASO % 0.6 % (0.0-1.0); EOS # 0.3 10*3/uL (0.0-0.4); EOS % 3.1 % (1.0-4.0); LYMPH # 0.6 10*3/uL (1.3-4.4); LYMPH % 7.2 % (27.0-41.0); MEAN CELL VOLUME 86.2 fl (80.0-94.0); MEAN CORPUSCULAR HGB 28.1 pg (27.0-31.0); MEAN CORPUSCULAR HGB CONC 32.6 g/dl (33.0-37.0); MONO # 0.6 10*3/uL (0.1-1.0); MONO % 7.3 % (3.0-9.0); NEUT # 7.1 10*3/uL (2.3-7.9); NEUT % 81.6 % (47.0-73.0); PLATELET COUNT AUTOMATED 221 10*3/uL (130-400); RED BLOOD COUNT 4.41 10*6/uL (4.50-5.90); WHITE BLOOD COUNT 8.7 10*3/uL (4.8-10.8)
[2019-12-22 07:32] LABS: ALBUMIN 3.7 gm/dl (3.1-4.5); CREATININE 1.55 mg/dL (0.70-1.30); POTASSIUM 4.4 mmol/L (3.5-5.1); TOTAL PROTEIN 6.7 gm/dL (6.4-8.2)
[2019-12-22 09:18] LABS: BILIRUBIN NEGATIVE (NEGATIVE); BLOOD NEGATIVE (NEGATIVE); CLARITY CLEAR (CLEAR); COLOR YELLOW (YELLOW); GLUCOSE NEGATIVE (NEGATIVE); KETONE NEGATIVE (NEGATIVE); LEUKO ESTERASE NEGATIVE (NEGATIVE); NITRITE NEGATIVE (NEGATIVE); SPECIFIC GRAVITY 1.005 (1.005-1.030); UROBILINOGEN 0.2 E.U./dl (0.2-1.0)
[2019-12-22 09:27] LABS: HYALINE CAST 0-2
[2019-12-22 09:29] LABS: BACTERIA 1+; EPITHELIAL CELLS 0-2; MUCOUS TRACE
== END ==
LOC: ED 05:47
PROVIDERS: Emergency Medicine Emergency Medical Services
DX: R33.9 Retention of urine, unspecified (principal); F41.9 Anxiety disorder, unspecified; F31.9 Bipolar disorder, unspecified; J44.9 Chronic obstructive pulmonary disease, unspecified; E78.5 Hyperlipidemia, unspecified; I10 Essential (primary) hypertension; Z88.8 Allergy status to other drugs, medicaments and biological substances; Z79.899 Other long term (current) drug therapy; Z79.82 Long term (current) use of aspirin

== ENCOUNTER → 2020-04-11 | Outpatient (CLI) | payer OTHER, MEDICAID | END | disposition home or self-care (01) | LOC: US 06:57 | PROVIDERS: ATTEND Surgery Vascular Surgery | DX: I71.4 Abdominal aortic aneurysm, without rupture (principal); I10 Essential (primary) hypertension ==

== ENCOUNTER → 2020-05-27 | Outpatient (CLI) | payer OTHER, MEDICAID | END | disposition home or self-care (01) | LOC: CT 10:50 | PROVIDERS: ATTEND Internal Medicine | DX: K76.0 Fatty (change of) liver, not elsewhere classified (principal); N28.1 Cyst of kidney, acquired; I71.4 Abdominal aortic aneurysm, without rupture; I51.3 Intracardiac thrombosis, not elsewhere classified; I70.0 Atherosclerosis of aorta; J98.11 Atelectasis; Z90.49 Acquired absence of other specified parts of digestive tract ==

== ENCOUNTER 2020-07-04 16:12 | Observation (INO) | payer OTHER, MEDICAID ==
[~2020-07-04] VITALS: Ht 180 cm; Wt 80.0 kg
[2020-07-04 16:22] VITALS: BP 113/64
[2020-07-04 17:14] LABS: BASO % 0.5 % (0.0-1.0); EOS # 0.3 10*3/uL (0.0-0.4); EOS % 3.5 % (1.0-4.0); HEMATOCRIT 36.4 % (42.0-52.0); LYMPH # 0.6 10*3/uL (1.3-4.4); LYMPH % 7.6 % (27.0-41.0); MEAN CELL VOLUME 87.5 fl (80.0-94.0); MEAN CORPUSCULAR HGB 28.8 pg (27.0-31.0); MEAN PLATELET VOLUME 9.2 fl (9.6-12.3); MONO # 0.7 10*3/uL (0.1-1.0); MONO % 8.9 % (3.0-9.0); NEUT # 6.2 10*3/uL (2.3-7.9); NEUT % 79.4 % (47.0-73.0); PLATELET COUNT AUTOMATED 200 10*3/uL (130-400); RED BLOOD COUNT 4.16 10*6/uL (4.50-5.90); RED CELL DISTRI WIDTH 12.9 % (0-14.5); WHITE BLOOD COUNT 7.8 10*3/uL (4.8-10.8)
[2020-07-04 17:30] LABS: BUN 22 mg/dl (7-24); CHLORIDE 106 mmol/L (98-107); CREATININE 1.42 mg/dL (0.70-1.30); POTASSIUM 4.1 mmol/L (3.5-5.1); SODIUM 139 mmol/L (136-145)
[2020-07-04 17:32] LABS: ACT PARTIAL THROMBO TIME 25.5 SECONDS (20.0-32.1); TROPONIN I < 0.015 ng/ml (<0.045)
[2020-07-04 20:00] VITALS: BP 134/82
[2020-07-04 21:00] VITALS: BP 156/79
[2020-07-04 21:20] VITALS: BP 144/71
[2020-07-04 21:34] VITALS: BP 156/79
[2020-07-05] VITALS (7 sets, daily range): BP systolic 121–168; BP diastolic 62–88
[2020-07-05 06:31] LABS: ALBUMIN 3.2 gm/dl (3.1-4.5); BUN 17 mg/dl (7-24); CHLORIDE 109 mmol/L (98-107); POTASSIUM 3.8 mmol/L (3.5-5.1); SODIUM 140 mmol/L (136-145)
[2020-07-05 06:33] LABS: BASO % 0.5 % (0.0-1.0); EOS # 0.7 10*3/uL (0.0-0.4); EOS % 8.7 % (1.0-4.0); HEMATOCRIT 35.3 % (42.0-52.0); LYMPH % 11.9 % (27.0-41.0); MEAN CORPUSCULAR HGB 29.2 pg (27.0-31.0); MEAN CORPUSCULAR HGB CONC 33.1 g/dl (33.0-37.0); MEAN PLATELET VOLUME 9.3 fl (9.6-12.3); MONO # 0.7 10*3/uL (0.1-1.0); MONO % 8.3 % (3.0-9.0); NEUT # 5.7 10*3/uL (2.3-7.9); NEUT % 70.4 % (47.0-73.0); PLATELET COUNT AUTOMATED 188 10*3/uL (130-400); RED BLOOD COUNT 4.01 10*6/uL (4.50-5.90); RED CELL DISTRI WIDTH 12.6 % (0-14.5); WHITE BLOOD COUNT 8.2 10*3/uL (4.8-10.8)
[2020-07-05 06:40] LABS: ALKALINE PHOSPHATASE 108 U/L (45-117); CHOLESTEROL 129 mg/dL (<200); CREATININE 1.15 mg/dL (0.70-1.30); HDL CHOLESTEROL 51 mg/dl (40-60); LDL CHOLESTEROL 56 mg/dL (9-159); SGOT/AST 11 IU/L (3-35); SGPT/ALT 18 U/L (12-78); TOTAL PROTEIN 5.9 gm/dL (6.4-8.2); TRIGLYCERIDES 109 mg/dl (<150); VLDL CHOLESTEROL 22 mg/dL (6-40)
[2020-07-06] VITALS: BP 143/82
[2020-07-06 06:44] LABS: BUN 17 mg/dl (7-24); CHLORIDE 109 mmol/L (98-107); CREATININE 1.24 mg/dL (0.70-1.30); POTASSIUM 4.6 mmol/L (3.5-5.1); SODIUM 140 mmol/L (136-145)
[2020-07-06 06:45] LABS: BASO # 0.1 10*3/uL (0.0-0.1); BASO % 0.5 % (0.0-1.0); EOS % 10.1 % (1.0-4.0); HEMATOCRIT 37.7 % (42.0-52.0); MEAN CELL VOLUME 89.1 fl (80.0-94.0); MEAN CORPUSCULAR HGB 28.8 pg (27.0-31.0); MEAN CORPUSCULAR HGB CONC 32.4 g/dl (33.0-37.0); MEAN PLATELET VOLUME 9.2 fl (9.6-12.3); MONO # 0.7 10*3/uL (0.1-1.0); MONO % 7.3 % (3.0-9.0); NEUT # 6.9 10*3/uL (2.3-7.9); NEUT % 71.9 % (47.0-73.0); PLATELET COUNT AUTOMATED 221 10*3/uL (130-400); RED BLOOD COUNT 4.23 10*6/uL (4.50-5.90); RED CELL DISTRI WIDTH 12.6 % (0-14.5); WHITE BLOOD COUNT 9.6 10*3/uL (4.8-10.8)
[2020-07-06 08:00] VITALS: BP 138/81
[2020-07-06 12:00] VITALS: BP 129/86
[2020-07-06 16:00] VITALS: BP 124/90
[2020-07-06 20:00] VITALS: BP 148/79
[2020-07-07] VITALS: BP 163/80
[2020-07-07 06:49] LABS: BASO % 0.4 % (0.0-1.0); EOS % 10.6 % (1.0-4.0); LYMPH # 1.1 10*3/uL (1.3-4.4); LYMPH % 11.5 % (27.0-41.0); MEAN CORPUSCULAR HGB 28.8 pg (27.0-31.0); MEAN CORPUSCULAR HGB CONC 31.9 g/dl (33.0-37.0); MEAN PLATELET VOLUME 9.4 fl (9.6-12.3); MONO # 0.7 10*3/uL (0.1-1.0); MONO % 7.2 % (3.0-9.0); NEUT # 6.5 10*3/uL (2.3-7.9); NEUT % 70.1 % (47.0-73.0); PLATELET COUNT AUTOMATED 206 10*3/uL (130-400); RED CELL DISTRI WIDTH 12.5 % (0-14.5); WHITE BLOOD COUNT 9.3 10*3/uL (4.8-10.8)
[2020-07-07 06:56] LABS: ALBUMIN 3.2 gm/dl (3.1-4.5); ALKALINE PHOSPHATASE 113 U/L (45-117); BUN 14 mg/dl (7-24); CHLORIDE 110 mmol/L (98-107); CREATININE 1.09 mg/dL (0.70-1.30); POTASSIUM 3.9 mmol/L (3.5-5.1); SGOT/AST 11 IU/L (3-35); SGPT/ALT 20 U/L (12-78); SODIUM 140 mmol/L (136-145)
[2020-07-07 08:00] VITALS: BP 133/70
[2020-07-07 12:00] VITALS: BP 132/72
[2020-07-07 16:00] VITALS: BP 126/82
[2020-07-07 20:05] VITALS: BP 123/69
[2020-07-08] VITALS: BP 165/84
[2020-07-08 07:20] LABS: BASO % 0.5 % (0.0-1.0); EOS # 0.8 10*3/uL (0.0-0.4); EOS % 9.8 % (1.0-4.0); HEMATOCRIT 35.2 % (42.0-52.0); LYMPH # 0.9 10*3/uL (1.3-4.4); LYMPH % 10.6 % (27.0-41.0); MEAN CELL VOLUME 87.1 fl (80.0-94.0); MEAN CORPUSCULAR HGB 28.7 pg (27.0-31.0); MEAN PLATELET VOLUME 9.2 fl (9.6-12.3); MONO # 0.8 10*3/uL (0.1-1.0); MONO % 9.8 % (3.0-9.0); NEUT # 5.5 10*3/uL (2.3-7.9); PLATELET COUNT AUTOMATED 215 10*3/uL (130-400); RED BLOOD COUNT 4.04 10*6/uL (4.50-5.90); RED CELL DISTRI WIDTH 12.7 % (0-14.5)
[2020-07-08 07:38] LABS: ALBUMIN 3.1 gm/dl (3.1-4.5); ALKALINE PHOSPHATASE 116 U/L (45-117); BUN 14 mg/dl (7-24); CHLORIDE 109 mmol/L (98-107); CREATININE 1.06 mg/dL (0.70-1.30); POTASSIUM 3.9 mmol/L (3.5-5.1); SGOT/AST 12 IU/L (3-35); SGPT/ALT 22 U/L (12-78); SODIUM 141 mmol/L (136-145); TOTAL PROTEIN 5.8 gm/dL (6.4-8.2)
[2020-07-08 08:00] VITALS: BP 162/88
== END 2020-07-08 15:28 | disposition home or self-care (01) ==
LOC: ED 16:12 → EDHOLD 18:23 → 5E 18:23 → EDHOLD 18:23 → 5E 19:39
PROVIDERS: Emergency Medicine; Internal Medicine; Social Worker Clinical; Student in an Organized Health Care Education/Training Program; ADMIT Family Medicine; ATTEND Family Medicine
DX: R55 Syncope and collapse (principal); I95.1 Orthostatic hypotension; N17.0 Acute kidney failure with tubular necrosis; R29.6 Repeated falls; D64.9 Anemia, unspecified; F41.9 Anxiety disorder, unspecified; J44.9 Chronic obstructive pulmonary disease, unspecified; F31.32 Bipolar disorder, current episode depressed, moderate; I10 Essential (primary) hypertension; E78.5 Hyperlipidemia, unspecified; Z87.891 Personal history of nicotine dependence; Z79.899 Other long term (current) drug therapy

== ENCOUNTER → 2020-10-02 | Outpatient (CLI) | payer OTHER, MEDICAID ==
[2020-10-02 07:33] LABS: BASO # 0.1 10*3/uL (0.0-0.1); BASO % 0.8 % (0.0-1.0); EOS # 0.6 10*3/uL (0.0-0.4); EOS % 6.8 % (1.0-4.0); HEMATOCRIT 39.5 % (42.0-52.0); LYMPH % 10.9 % (27.0-41.0); MEAN CELL VOLUME 89.6 fl (80.0-94.0); MEAN CORPUSCULAR HGB 29.7 pg (27.0-31.0); MEAN CORPUSCULAR HGB CONC 33.2 g/dl (33.0-37.0); MEAN PLATELET VOLUME 9.2 fl (9.6-12.3); MONO # 0.7 10*3/uL (0.1-1.0); MONO % 7.6 % (3.0-9.0); NEUT # 6.7 10*3/uL (2.3-7.9); NEUT % 73.7 % (47.0-73.0); PLATELET COUNT AUTOMATED 227 10*3/uL (130-400); RED BLOOD COUNT 4.41 10*6/uL (4.50-5.90); RED CELL DISTRI WIDTH 13.4 % (0-14.5); WHITE BLOOD COUNT 9.1 10*3/uL (4.8-10.8)
[2020-10-02 08:16] LABS: ALBUMIN 3.8 gm/dl (3.1-4.5); ALKALINE PHOSPHATASE 123 U/L (45-117); BUN 20 mg/dl (7-24); CHLORIDE 107 mmol/L (98-107); CREATININE 1.29 mg/dL (0.70-1.30); POTASSIUM 4.1 mmol/L (3.5-5.1); SGOT/AST 18 IU/L (3-35); SGPT/ALT 20 U/L (12-78); SODIUM 140 mmol/L (136-145)
[2020-10-02 08:19] LABS: TOTAL PROTEIN 6.9 gm/dL (6.4-8.2)
== END | disposition home or self-care (01) ==
LOC: LAB 07:11
PROVIDERS: ATTEND Urology
DX: C61 Malignant neoplasm of prostate (principal); R53.83 Other fatigue

== ENCOUNTER 2020-11-19 11:03 | Inpatient (IN) | payer OTHER, MEDICAID ==
[~2020-11-19] VITALS: Ht 180.3 cm; Wt 78.1 kg
[2020-11-19 11:09] VITALS: BP 162/95
[2020-11-19 11:33] LABS: BASO % 0.4 % (0.0-1.0); EOS # 0.3 10*3/uL (0.0-0.4); EOS % 2.6 % (1.0-4.0); HEMATOCRIT 41.4 % (42.0-52.0); LYMPH # 0.4 10*3/uL (1.3-4.4); LYMPH % 4.1 % (27.0-41.0); MEAN CELL VOLUME 88.7 fl (80.0-94.0); MEAN CORPUSCULAR HGB 29.1 pg (27.0-31.0); MEAN CORPUSCULAR HGB CONC 32.9 g/dl (33.0-37.0); MEAN PLATELET VOLUME 9.2 fl (9.6-12.3); MONO # 0.5 10*3/uL (0.1-1.0); MONO % 4.6 % (3.0-9.0); NEUT # 9.4 10*3/uL (2.3-7.9); PLATELET COUNT AUTOMATED 215 10*3/uL (130-400); RED BLOOD COUNT 4.67 10*6/uL (4.50-5.90); RED CELL DISTRI WIDTH 13.2 % (0-14.5); WHITE BLOOD COUNT 10.7 10*3/uL (4.8-10.8)
[2020-11-19 11:48] LABS: ALBUMIN 3.5 gm/dl (3.1-4.5); ALKALINE PHOSPHATASE 140 U/L (45-117); BUN 16 mg/dl (7-24); CHLORIDE 107 mmol/L (98-107); CREATININE 1.42 mg/dL (0.70-1.30); LIPASE 69 U/L (73-393); SGOT/AST 12 IU/L (3-35); SGPT/ALT 19 U/L (12-78); SODIUM 139 mmol/L (136-145); TOTAL PROTEIN 7.2 gm/dL (6.4-8.2); TROPONIN I < 0.015 ng/ml (<0.045)
[2020-11-19 11:49] VITALS: BP 148/85
[2020-11-19 12:28] VITALS: BP 134/82
[2020-11-19 12:49] LABS: BILIRUBIN Negative (Negative); BLOOD Negative (Negative); CLARITY Clear (Clear); COLOR Yellow (Yellow); GLUCOSE Negative (Negative); KETONE Negative (Negative); LEUKO ESTERASE Negative (Negative); NITRITE Negative (Negative); UROBILINOGEN 0.2 E.U./dl (0.0-1.0)
[2020-11-19 14:40] VITALS: BP 160/80
[2020-11-19 16:00] VITALS: BP 150/80
[2020-11-19 20:00] VITALS: BP 118/81
[2020-11-20] VITALS: BP 156/82
[2020-11-20 05:47] LABS: ALBUMIN 3.3 gm/dl (3.1-4.5); ALKALINE PHOSPHATASE 123 U/L (45-117); BUN 16 mg/dl (7-24); CHLORIDE 109 mmol/L (98-107); CREATININE 1.25 mg/dL (0.70-1.30); SGOT/AST 13 IU/L (3-35); SGPT/ALT 19 U/L (12-78); SODIUM 142 mmol/L (136-145); TOTAL PROTEIN 6.1 gm/dL (6.4-8.2)
[2020-11-20 06:37] LABS: BASO # 0.1 10*3/uL (0.0-0.1); BASO % 0.6 % (0.0-1.0); EOS # 0.5 10*3/uL (0.0-0.4); HEMATOCRIT 36.7 % (42.0-52.0); LYMPH # 0.8 10*3/uL (1.3-4.4); LYMPH % 8.1 % (27.0-41.0); MEAN CORPUSCULAR HGB 29.4 pg (27.0-31.0); MEAN CORPUSCULAR HGB CONC 31.9 g/dl (33.0-37.0); MEAN PLATELET VOLUME 9.8 fl (9.6-12.3); MONO # 0.8 10*3/uL (0.1-1.0); MONO % 7.9 % (3.0-9.0); NEUT # 7.7 10*3/uL (2.3-7.9); NEUT % 78.1 % (47.0-73.0); PLATELET COUNT AUTOMATED 208 10*3/uL (130-400); RED BLOOD COUNT 3.98 10*6/uL (4.50-5.90); RED CELL DISTRI WIDTH 13.3 % (0-14.5); WHITE BLOOD COUNT 9.8 10*3/uL (4.8-10.8)
[2020-11-20 06:39] LABS: MEAN CELL VOLUME 92.2 fl (80.0-94.0)
[2020-11-20 07:57] LABS: VITAMIN D, 25-HYDROXY 66.9 ng/mL (30-100)
[2020-11-20 08:00] VITALS: BP 168/86
[2020-11-20 12:00] VITALS: BP 140/78
[2020-11-20 16:00] VITALS: BP 145/81
[2020-11-20 20:00] VITALS: BP 140/78
[2020-11-21] VITALS: BP 138/76
[2020-11-21 08:00] VITALS: BP 132/86
[2020-11-21 12:00] VITALS: BP 174/86
[2020-11-21 16:17] VITALS: BP 116/64
[2020-11-21 20:00] VITALS: BP 138/80
[2020-11-22] VITALS: BP 131/48; BP 136/56
[2020-11-22 08:00] VITALS: BP 150/96
== END 2020-11-22 11:54 | disposition home or self-care (01) | DRG 640 ==
LOC: ED 11:03 → EDHOLD 13:51 → 4E 13:51
PROVIDERS: Emergency Medicine; Internal Medicine; ADMIT Student in an Organized Health Care Education/Training Program; ATTEND Student in an Organized Health Care Education/Training Program
DX: E86.0 Dehydration (principal); N17.0 Acute kidney failure with tubular necrosis; R65.10 Systemic inflammatory response syndrome (SIRS) of non-infectious origin without acute organ dysfunction; R78.81 Bacteremia; F31.32 Bipolar disorder, current episode depressed, moderate; E87.2 Acidosis; R73.9 Hyperglycemia, unspecified; F41.9 Anxiety disorder, unspecified; J44.9 Chronic obstructive pulmonary disease, unspecified; I73.9 Peripheral vascular disease, unspecified; I10 Essential (primary) hypertension; E78.2 Mixed hyperlipidemia; D64.9 Anemia, unspecified; B96.89 Other specified bacterial agents as the cause of diseases classified elsewhere; Z88.8 Allergy status to other drugs, medicaments and biological substances; Z89.421 Acquired absence of other right toe(s); Z90.49 Acquired absence of other specified parts of digestive tract; Z87.891 Personal history of nicotine dependence; Z82.49 Family history of ischemic heart disease and other diseases of the circulatory system; Z84.1 Family history of disorders of kidney and ureter; Z85.46 Personal history of malignant neoplasm of prostate; Z79.899 Other long term (current) drug therapy; Z79.82 Long term (current) use of aspirin

== ENCOUNTER 2020-11-22 13:35 | Emergency (ER) | payer OTHER, MEDICAID ==
[~2020-11-22] VITALS: Ht 180.3 cm; Wt 80.7 kg
[2020-11-22 14:11] LABS: BASO % 0.3 % (0.0-1.0); EOS # 0.5 10*3/uL (0.0-0.4); EOS % 4.4 % (1.0-4.0); HEMATOCRIT 37.8 % (42.0-52.0); LYMPH # 0.6 10*3/uL (1.3-4.4); LYMPH % 5.5 % (27.0-41.0); MEAN CELL VOLUME 87.7 fl (80.0-94.0); MEAN CORPUSCULAR HGB CONC 33.1 g/dl (33.0-37.0); MEAN PLATELET VOLUME 9.1 fl (9.6-12.3); MONO # 0.7 10*3/uL (0.1-1.0); MONO % 5.8 % (3.0-9.0); NEUT # 9.7 10*3/uL (2.3-7.9); NEUT % 83.7 % (47.0-73.0); PLATELET COUNT AUTOMATED 211 10*3/uL (130-400); RED BLOOD COUNT 4.31 10*6/uL (4.50-5.90); WHITE BLOOD COUNT 11.6 10*3/uL (4.8-10.8)
[2020-11-22 14:15] VITALS: BP 174/89
[2020-11-22 14:29] LABS: ALBUMIN 3.7 gm/dl (3.1-4.5); ALKALINE PHOSPHATASE 128 U/L (45-117); BUN 16 mg/dl (7-24); CHLORIDE 105 mmol/L (98-107); CREATININE 1.26 mg/dL (0.70-1.30); POTASSIUM 4.2 mmol/L (3.5-5.1); SGOT/AST 17 IU/L (3-35); SGPT/ALT 21 U/L (12-78); SODIUM 140 mmol/L (136-145); TOTAL PROTEIN 6.8 gm/dL (6.4-8.2)
[2020-11-22 14:31] LABS: ETHYL ALCOHOL < 3.0 mg/dl (<3); TROPONIN I < 0.015 ng/ml (<0.045)
[2020-11-22 15:47] LABS: BILIRUBIN Negative (Negative); BLOOD Negative (Negative); CLARITY Clear (Clear); COLOR Yellow (Yellow); GLUCOSE Negative (Negative); KETONE Negative (Negative); LEUKO ESTERASE Negative (Negative); NITRITE Negative (Negative); SPECIFIC GRAVITY 1.015 (1.001-1.030); UROBILINOGEN 0.2 E.U./dl (0.0-1.0)
[2020-11-22 15:55] LABS: URINE AMPHETAMINES < 1000 (1000ng/ml); URINE BARBITURATES < 200 (200ng/ml); URINE BENZODIAZEPINES < 200 (200ng/ml); URINE CANNABINOIDS (THC) < 50 (50ng/ml); URINE COCAINE < 300 (300ng/ml); URINE METHADONE < 300 (300ng/ml); URINE OPIATES < 300 (300ng/ml)
[2020-11-22 15:56] LABS: BACTERIA 1+; EPITHELIAL CELLS 0-2; RBC 0-2 rbc/hpf (0-2)
[2020-11-22 16:01] LABS: URINE PHENCYCLIDINE < 25 (25ng/ml)
== END 2020-11-22 19:05 | disposition home or self-care (01) ==
LOC: ED 13:35
PROVIDERS: Emergency Medicine
DX: J44.9 Chronic obstructive pulmonary disease, unspecified (principal); F31.9 Bipolar disorder, unspecified; E78.5 Hyperlipidemia, unspecified; Z88.8 Allergy status to other drugs, medicaments and biological substances; Z79.899 Other long term (current) drug therapy; Z98.890 Other specified postprocedural states; Z95.818 Presence of other cardiac implants and grafts

== ENCOUNTER 2020-11-26 08:44 | Emergency (ER) | payer OTHER, MEDICAID ==
[2020-11-26 08:48] VITALS: BP 160/89
== END 2020-11-26 12:23 | disposition home or self-care (01) ==
LOC: ED 08:44
DX: T17.208A Unspecified foreign body in pharynx causing other injury, initial encounter (principal); Z88.8 Allergy status to other drugs, medicaments and biological substances; Z79.899 Other long term (current) drug therapy; X58.XXXA Exposure to other specified factors, initial encounter; Y93.89 Activity, other specified; Y92.89 Other specified places as the place of occurrence of the external cause; Y99.8 Other external cause status

== ENCOUNTER 2020-11-28 12:14 | Emergency (ER) | payer OTHER, MEDICAID ==
[~2020-11-28] VITALS: Ht 180.3 cm; Wt 77.1 kg
[2020-11-28 12:34] VITALS: BP 175/97
== END 2020-11-28 13:20 | disposition home or self-care (01) ==
LOC: ED 12:14
DX: M25.512 Pain in left shoulder (principal); Z88.8 Allergy status to other drugs, medicaments and biological substances; Z79.899 Other long term (current) drug therapy; Z79.82 Long term (current) use of aspirin; Z98.890 Other specified postprocedural states; Z95.818 Presence of other cardiac implants and grafts; Z90.49 Acquired absence of other specified parts of digestive tract

== ENCOUNTER → 2020-12-11 | Outpatient (CLI) | payer OTHER, MEDICAID ==
[2020-12-11 07:39] LABS: BASO % 0.5 % (0.0-1.0); EOS # 0.6 10*3/uL (0.0-0.4); EOS % 6.5 % (1.0-4.0); HEMATOCRIT 40.6 % (42.0-52.0); LYMPH # 0.8 10*3/uL (1.3-4.4); LYMPH % 9.2 % (27.0-41.0); MEAN CELL VOLUME 90.4 fl (80.0-94.0); MEAN PLATELET VOLUME 9.3 fl (9.6-12.3); MONO # 0.6 10*3/uL (0.1-1.0); MONO % 6.8 % (3.0-9.0); NEUT # 6.6 10*3/uL (2.3-7.9); NEUT % 76.7 % (47.0-73.0); PLATELET COUNT AUTOMATED 241 10*3/uL (130-400); RED BLOOD COUNT 4.49 10*6/uL (4.50-5.90); RED CELL DISTRI WIDTH 13.3 % (0-14.5); WHITE BLOOD COUNT 8.6 10*3/uL (4.8-10.8)
[2020-12-11 07:54] LABS: ALBUMIN 3.9 gm/dl (3.1-4.5); CREATININE 1.57 mg/dL (0.70-1.30); TOTAL PROTEIN 7.2 gm/dL (6.4-8.2)
== END | disposition home or self-care (01) ==
LOC: LAB 07:21
PROVIDERS: ATTEND Urology
DX: C61 Malignant neoplasm of prostate (principal); R53.83 Other fatigue

== ENCOUNTER 2020-12-20 07:53 | Emergency (ER) | payer OTHER, MEDICAID ==
[~2020-12-20] VITALS: Ht 177.8 cm; Wt 77.1 kg
[2020-12-20 08:12] VITALS: BP 124/77
[2020-12-20 08:24] LABS: BASO % 0.3 % (0.0-1.0); EOS # 0.4 10*3/uL (0.0-0.4); HEMATOCRIT 36.7 % (42.0-52.0); LYMPH # 0.4 10*3/uL (1.3-4.4); MEAN CELL VOLUME 89.1 fl (80.0-94.0); MEAN CORPUSCULAR HGB 29.1 pg (27.0-31.0); MEAN CORPUSCULAR HGB CONC 32.7 g/dl (33.0-37.0); MEAN PLATELET VOLUME 9.4 fl (9.6-12.3); MONO # 0.5 10*3/uL (0.1-1.0); MONO % 4.8 % (3.0-9.0); NEUT # 9.6 10*3/uL (2.3-7.9); NEUT % 86.5 % (47.0-73.0); PLATELET COUNT AUTOMATED 200 10*3/uL (130-400); RED BLOOD COUNT 4.12 10*6/uL (4.50-5.90); RED CELL DISTRI WIDTH 13.1 % (0-14.5); WHITE BLOOD COUNT 11.1 10*3/uL (4.8-10.8)
[2020-12-20 08:53] LABS: ALBUMIN 3.7 gm/dl (3.1-4.5); ALKALINE PHOSPHATASE 132 U/L (45-117); BUN 16 mg/dl (7-24); CHLORIDE 107 mmol/L (98-107); CREATININE 1.56 mg/dL (0.70-1.30); SGOT/AST 11 IU/L (3-35); SGPT/ALT 16 U/L (12-78); SODIUM 139 mmol/L (136-145); TOTAL PROTEIN 6.8 gm/dL (6.4-8.2); TROPONIN I < 0.015 ng/ml (<0.045)
== END 2020-12-20 10:31 | disposition home or self-care (01) ==
LOC: ED 07:53
PROVIDERS: Student in an Organized Health Care Education/Training Program
DX: F41.9 Anxiety disorder, unspecified (principal); R06.02 Shortness of breath; R53.1 Weakness; F31.9 Bipolar disorder, unspecified; Z88.8 Allergy status to other drugs, medicaments and biological substances; Z79.899 Other long term (current) drug therapy; Z79.82 Long term (current) use of aspirin; Z89.421 Acquired absence of other right toe(s); Z95.828 Presence of other vascular implants and grafts; Z90.49 Acquired absence of other specified parts of digestive tract; Z87.891 Personal history of nicotine dependence

== ENCOUNTER 2021-01-22 10:42 | Emergency (ER) | payer OTHER, MEDICAID ==
[~2021-01-22] VITALS: Wt 72.6 kg
[2021-01-22 11:36] LABS: BASO # 0.1 10*3/uL (0.0-0.1); BASO % 0.5 % (0.0-1.0); EOS # 0.2 10*3/uL (0.0-0.4); EOS % 2.4 % (1.0-4.0); HEMATOCRIT 36.9 % (42.0-52.0); LYMPH # 0.5 10*3/uL (1.3-4.4); LYMPH % 5.3 % (27.0-41.0); MEAN CELL VOLUME 88.9 fl (80.0-94.0); MEAN CORPUSCULAR HGB 28.9 pg (27.0-31.0); MEAN CORPUSCULAR HGB CONC 32.5 g/dl (33.0-37.0); MEAN PLATELET VOLUME 8.8 fl (9.6-12.3); MONO # 0.7 10*3/uL (0.1-1.0); MONO % 6.5 % (3.0-9.0); NEUT # 8.6 10*3/uL (2.3-7.9); PLATELET COUNT AUTOMATED 247 10*3/uL (130-400); RED BLOOD COUNT 4.15 10*6/uL (4.50-5.90); RED CELL DISTRI WIDTH 12.8 % (0-14.5); WHITE BLOOD COUNT 10.2 10*3/uL (4.8-10.8)
[2021-01-22 11:52] LABS: ALBUMIN 3.9 gm/dl (3.1-4.5); ALKALINE PHOSPHATASE 131 U/L (45-117); BUN 28 mg/dl (7-24); CHLORIDE 109 mmol/L (98-107); CREATININE 1.55 mg/dL (0.70-1.30); POTASSIUM 4.7 mmol/L (3.5-5.1); SGOT/AST 13 IU/L (3-35); SGPT/ALT 22 U/L (12-78); SODIUM 139 mmol/L (136-145); TOTAL PROTEIN 6.8 gm/dL (6.4-8.2)
[2021-01-22 12:06] LABS: ACETAMINOPHEN (TYLENOL) < 5.0 ug/ml (10-30); ETHYL ALCOHOL < 3.0 mg/dl (<3)
[2021-01-22 15:12] LABS: BILIRUBIN Negative (Negative); BLOOD Negative (Negative); CLARITY Clear (Clear); COLOR Yellow (Yellow); GLUCOSE 1+ (Negative); KETONE Negative (Negative); LEUKO ESTERASE Negative (Negative); NITRITE Negative (Negative); PH 5.5 (4.5-8.0); UROBILINOGEN 0.2 E.U./dl (0.0-1.0)
[2021-01-22 15:20] LABS: URINE AMPHETAMINES < 1000 (1000ng/ml); URINE BARBITURATES < 200 (200ng/ml); URINE BENZODIAZEPINES < 200 (200ng/ml); URINE CANNABINOIDS (THC) < 50 (50ng/ml); URINE COCAINE < 300 (300ng/ml); URINE METHADONE < 300 (300ng/ml); URINE OPIATES < 300 (300ng/ml)
[2021-01-22 15:24] LABS: URINE PHENCYCLIDINE < 25 (25ng/ml)
[2021-01-22 15:32] LABS: BACTERIA TRACE
[2021-01-22] MEDS ORDERED: BICALUTAMIDE50 MG PO (19:12)
[2021-01-22] MEDS ORDERED: HYDROXYZINE PAM50 MG PO (19:12)
[2021-01-22] MEDS ORDERED: AMLODIPINE BES2.5 MG PO (19:12)
[2021-01-22] MEDS ORDERED: BUSPAR15 MG PO (19:14)
[2021-01-22] MEDS ORDERED: OLANZAPINE5 MG PO (19:15)
[2021-01-23 02:54] VITALS: BP 149/75
== END 2021-01-23 06:17 ==
LOC: ED 10:42
PROVIDERS: Emergency Medicine
DX: F25.0 Schizoaffective disorder, bipolar type (principal); Z20.822 Contact with and (suspected) exposure to COVID-19; Z79.899 Other long term (current) drug therapy; Z79.82 Long term (current) use of aspirin; Z88.8 Allergy status to other drugs, medicaments and biological substances; Z87.891 Personal history of nicotine dependence

== ENCOUNTER 2021-03-14 11:04 | Emergency (ER) | payer OTHER, MEDICAID ==
[~2021-03-14] VITALS: Ht 180.3 cm; Wt 77.1 kg
[~2021-03-14 11:04] MED LIST changes: +AMLODIPINE BES2.5 MG PO; +BICALUTAMIDE50 MG PO; +BUSPAR15 MG PO; +HYDROXYZINE PAM50 MG PO; +OLANZAPINE5 MG PO
[2021-03-14 11:14] VITALS: BP 152/87
== END 2021-03-14 14:41 | disposition home or self-care (01) ==
LOC: ED 11:04
DX: S00.83XA Contusion of other part of head, initial encounter (principal); Z88.8 Allergy status to other drugs, medicaments and biological substances; Z79.899 Other long term (current) drug therapy; Z79.82 Long term (current) use of aspirin; W22.8XXA Striking against or struck by other objects, initial encounter; Y93.89 Activity, other specified; Y92.89 Other specified places as the place of occurrence of the external cause; Y99.8 Other external cause status

== ENCOUNTER → 2021-03-19 | Outpatient (CLI) | payer OTHER, MEDICAID ==
[2021-03-19 07:58] LABS: BASO % 0.3 % (0.0-1.0); EOS # 0.2 10*3/uL (0.0-0.4); EOS % 1.2 % (1.0-4.0); HEMATOCRIT 40.3 % (42.0-52.0); LYMPH # 1.5 10*3/uL (1.3-4.4); LYMPH % 9.3 % (27.0-41.0); MEAN CELL VOLUME 87.8 fl (80.0-94.0); MEAN CORPUSCULAR HGB 28.5 pg (27.0-31.0); MEAN CORPUSCULAR HGB CONC 32.5 g/dl (33.0-37.0); MEAN PLATELET VOLUME 9.4 fl (9.6-12.3); MONO # 1.1 10*3/uL (0.1-1.0); MONO % 6.8 % (3.0-9.0); NEUT % 81.1 % (47.0-73.0); PLATELET COUNT AUTOMATED 236 10*3/uL (130-400); RED BLOOD COUNT 4.59 10*6/uL (4.50-5.90); RED CELL DISTRI WIDTH 13.4 % (0-14.5)
[2021-03-19 08:07] LABS: ALBUMIN 3.7 gm/dl (3.1-4.5); ALKALINE PHOSPHATASE 116 U/L (45-117); BUN 19 mg/dl (7-24); CHLORIDE 106 mmol/L (98-107); CREATININE 1.22 mg/dL (0.70-1.30); POTASSIUM 3.8 mmol/L (3.5-5.1); SGOT/AST 16 IU/L (3-35); SGPT/ALT 31 U/L (12-78); SODIUM 140 mmol/L (136-145); TOTAL PROTEIN 6.7 gm/dL (6.4-8.2)
== END | disposition home or self-care (01) ==
LOC: LAB 06:53
PROVIDERS: ATTEND Urology
DX: C61 Malignant neoplasm of prostate (principal); R53.83 Other fatigue

== ENCOUNTER 2021-03-26 18:28 | Emergency (ER) | payer OTHER, MEDICAID ==
[~2021-03-26] VITALS: Wt 77.1 kg
[2021-03-26 18:32] VITALS: BP 143/85
== END 2021-03-26 21:00 | disposition home or self-care (01) ==
LOC: ED 18:28
DX: F41.9 Anxiety disorder, unspecified (principal); Z88.8 Allergy status to other drugs, medicaments and biological substances; Z79.899 Other long term (current) drug therapy; Z79.82 Long term (current) use of aspirin

== ENCOUNTER 2021-04-06 12:19 | Emergency (ER) | payer OTHER, MEDICAID ==
[~2021-04-06] VITALS: Ht 177.8 cm; Wt 77.1 kg
[2021-04-06 12:28] VITALS: BP 111/74
[2021-04-06 13:10] LABS: BASO % 0.5 % (0.0-1.0); EOS # 0.5 10*3/uL (0.0-0.4); EOS % 7.1 % (1.0-4.0); HEMATOCRIT 37.8 % (42.0-52.0); LYMPH # 0.7 10*3/uL (1.3-4.4); LYMPH % 8.9 % (27.0-41.0); MEAN CELL VOLUME 87.5 fl (80.0-94.0); MEAN CORPUSCULAR HGB 28.7 pg (27.0-31.0); MEAN CORPUSCULAR HGB CONC 32.8 g/dl (33.0-37.0); MEAN PLATELET VOLUME 9.5 fl (9.6-12.3); MONO # 0.7 10*3/uL (0.1-1.0); MONO % 9.6 % (3.0-9.0); NEUT # 5.5 10*3/uL (2.3-7.9); NEUT % 73.8 % (47.0-73.0); PLATELET COUNT AUTOMATED 231 10*3/uL (130-400); RED BLOOD COUNT 4.32 10*6/uL (4.50-5.90); RED CELL DISTRI WIDTH 14.3 % (0-14.5); WHITE BLOOD COUNT 7.5 10*3/uL (4.8-10.8)
[2021-04-06 13:25] LABS: ALBUMIN 3.5 gm/dl (3.1-4.5); CREATININE 1.46 mg/dL (0.70-1.30); POTASSIUM 4.8 mmol/L (3.5-5.1); TOTAL PROTEIN 6.7 gm/dL (6.4-8.2)
== END 2021-04-06 17:49 | disposition home or self-care (01) ==
LOC: ED 12:19
PROVIDERS: Physician Assistant
DX: R19.7 Diarrhea, unspecified (principal); R11.0 Nausea; Z88.8 Allergy status to other drugs, medicaments and biological substances; Z79.82 Long term (current) use of aspirin; Z79.899 Other long term (current) drug therapy

== ENCOUNTER → 2021-05-26 | Outpatient (CLI) | payer OTHER, MEDICAID | END | disposition home or self-care (01) | LOC: MAMMO 14:28 | PROVIDERS: ATTEND Physician Assistant | DX: N64.59 Other signs and symptoms in breast (principal) ==

== ENCOUNTER 2021-06-06 04:12 | Emergency (ER) | payer OTHER, MEDICAID ==
[~2021-06-06] VITALS: Ht 180.3 cm; Wt 77.1 kg
[2021-06-06 04:14] VITALS: BP 165/98
== END 2021-06-06 06:50 | disposition home or self-care (01) ==
LOC: ED 04:12
DX: F51.5 Nightmare disorder (principal); F41.9 Anxiety disorder, unspecified; Z88.8 Allergy status to other drugs, medicaments and biological substances; Z79.899 Other long term (current) drug therapy; Z79.82 Long term (current) use of aspirin; Z87.891 Personal history of nicotine dependence

== ENCOUNTER → 2021-07-31 | Outpatient (CLI) | payer OTHER, MEDICAID ==
[2021-07-31 07:31] LABS: BASO # 0.1 10*3/uL (0.0-0.1); BASO % 0.5 % (0.0-1.0); EOS # 0.5 10*3/uL (0.0-0.4); EOS % 5.1 % (1.0-4.0); HEMATOCRIT 40.2 % (42.0-52.0); LYMPH # 0.8 10*3/uL (1.3-4.4); LYMPH % 7.2 % (27.0-41.0); MEAN CELL VOLUME 89.1 fl (80.0-94.0); MEAN CORPUSCULAR HGB 29.7 pg (27.0-31.0); MEAN CORPUSCULAR HGB CONC 33.3 g/dl (33.0-37.0); MEAN PLATELET VOLUME 9.3 fl (9.6-12.3); MONO # 0.6 10*3/uL (0.1-1.0); MONO % 5.9 % (3.0-9.0); NEUT # 8.5 10*3/uL (2.3-7.9); PLATELET COUNT AUTOMATED 218 10*3/uL (130-400); RED BLOOD COUNT 4.51 10*6/uL (4.50-5.90); RED CELL DISTRI WIDTH 12.9 % (0-14.5); WHITE BLOOD COUNT 10.5 10*3/uL (4.8-10.8)
[2021-07-31 07:49] LABS: ALKALINE PHOSPHATASE 105 U/L (45-117); BUN 25 mg/dl (7-24); CHLORIDE 107 mmol/L (98-107); CREATININE 1.32 mg/dL (0.70-1.30); POTASSIUM 4.1 mmol/L (3.5-5.1); SGOT/AST 13 IU/L (3-35); SGPT/ALT 21 U/L (12-78); SODIUM 139 mmol/L (136-145); TOTAL PROTEIN 7.3 gm/dL (6.4-8.2)
== END | disposition home or self-care (01) ==
LOC: LAB 07:07
PROVIDERS: ATTEND Urology
DX: Z12.5 Encounter for screening for malignant neoplasm of prostate (principal); C61 Malignant neoplasm of prostate; R53.83 Other fatigue; I10 Essential (primary) hypertension

== ENCOUNTER 2021-08-20 14:31 | Emergency (ER) | payer OTHER, MEDICAID ==
[~2021-08-20] VITALS: Ht 180.3 cm; Wt 77.1 kg
[2021-08-20 15:24] LABS: BASO # 0.1 10*3/uL (0.0-0.1); BASO % 0.4 % (0.0-1.0); EOS # 0.1 10*3/uL (0.0-0.4); EOS % 0.6 % (1.0-4.0); HEMATOCRIT 40.1 % (42.0-52.0); LYMPH # 0.6 10*3/uL (1.3-4.4); MEAN CELL VOLUME 88.1 fl (80.0-94.0); MEAN CORPUSCULAR HGB 29.9 pg (27.0-31.0); MEAN CORPUSCULAR HGB CONC 33.9 g/dl (33.0-37.0); MEAN PLATELET VOLUME 9.6 fl (9.6-12.3); MONO # 0.8 10*3/uL (0.1-1.0); MONO % 5.8 % (3.0-9.0); NEUT # 12.5 10*3/uL (2.3-7.9); NEUT % 88.7 % (47.0-73.0); PLATELET COUNT AUTOMATED 185 10*3/uL (130-400); RED BLOOD COUNT 4.55 10*6/uL (4.50-5.90); RED CELL DISTRI WIDTH 12.9 % (0-14.5); WHITE BLOOD COUNT 14.1 10*3/uL (4.8-10.8)
[2021-08-20 15:35] LABS: ACT PARTIAL THROMBO TIME 27.1 SECONDS (20.0-32.1)
[2021-08-20 16:05] LABS: CREATININE 1.63 mg/dL (0.70-1.30)
[2021-08-20 18:30] VITALS: BP 168/99
== END 2021-08-20 18:27 | disposition home or self-care (01) ==
LOC: ED 14:31
PROVIDERS: Emergency Medicine
DX: R42 Dizziness and giddiness (principal); T46.7X5A Adverse effect of peripheral vasodilators, initial encounter; Z88.8 Allergy status to other drugs, medicaments and biological substances; Z79.899 Other long term (current) drug therapy; Z79.82 Long term (current) use of aspirin; Z90.89 Acquired absence of other organs; Z98.890 Other specified postprocedural states; Z87.891 Personal history of nicotine dependence; Y92.89 Other specified places as the place of occurrence of the external cause

== ENCOUNTER → 2021-10-28 | Outpatient (CLI) | payer OTHER, MEDICAID ==
[2021-10-28 08:02] LABS: BASO % 0.4 % (0.0-1.0); EOS # 0.3 10*3/uL (0.0-0.4); EOS % 3.9 % (1.0-4.0); HEMATOCRIT 38.1 % (42.0-52.0); LYMPH # 0.6 10*3/uL (1.3-4.4); LYMPH % 8.4 % (27.0-41.0); MEAN CORPUSCULAR HGB 29.8 pg (27.0-31.0); MEAN CORPUSCULAR HGB CONC 33.9 g/dl (33.0-37.0); MEAN PLATELET VOLUME 9.3 fl (9.6-12.3); MONO # 0.5 10*3/uL (0.1-1.0); MONO % 6.4 % (3.0-9.0); NEUT # 6.1 10*3/uL (2.3-7.9); NEUT % 80.6 % (47.0-73.0); PLATELET COUNT AUTOMATED 112 10*3/uL (130-400); RED BLOOD COUNT 4.33 10*6/uL (4.50-5.90); RED CELL DISTRI WIDTH 13.2 % (0-14.5); WHITE BLOOD COUNT 7.5 10*3/uL (4.8-10.8)
[2021-10-28 08:32] LABS: ALKALINE PHOSPHATASE 100 U/L (45-117); BUN 26 mg/dl (7-24); CHLORIDE 108 mmol/L (98-107); CREATININE 1.36 mg/dL (0.70-1.30); POTASSIUM 3.8 mmol/L (3.5-5.1); SGOT/AST 13 IU/L (3-35); SGPT/ALT 20 U/L (12-78); SODIUM 140 mmol/L (136-145); TOTAL PROTEIN 7.1 gm/dL (6.4-8.2)
== END | disposition home or self-care (01) ==
LOC: LAB 07:40
PROVIDERS: ATTEND Urology
DX: Z12.5 Encounter for screening for malignant neoplasm of prostate (principal); C61 Malignant neoplasm of prostate; I10 Essential (primary) hypertension; R53.83 Other fatigue

== ENCOUNTER 2021-12-13 10:04 | Emergency (ER) | payer OTHER, MEDICAID ==
[~2021-12-13] VITALS: Ht 180.3 cm; Wt 81.6 kg
[2021-12-13 10:14] VITALS: BP 139/79
[2021-12-13 11:35] LABS: BASO % 0.3 % (0.0-1.0); EOS # 0.1 10*3/uL (0.0-0.4); EOS % 1.9 % (1.0-4.0); HEMATOCRIT 36.7 % (42.0-52.0); LYMPH # 0.4 10*3/uL (1.3-4.4); MEAN CELL VOLUME 90.6 fl (80.0-94.0); MEAN CORPUSCULAR HGB 29.9 pg (27.0-31.0); MEAN PLATELET VOLUME 9.4 fl (9.6-12.3); MONO # 0.3 10*3/uL (0.1-1.0); MONO % 5.8 % (3.0-9.0); NEUT % 84.7 % (47.0-73.0); PLATELET COUNT AUTOMATED 108 10*3/uL (130-400); RED BLOOD COUNT 4.05 10*6/uL (4.50-5.90); RED CELL DISTRI WIDTH 13.2 % (0-14.5); WHITE BLOOD COUNT 5.9 10*3/uL (4.8-10.8)
[2021-12-13 11:50] LABS: CREATININE 1.46 mg/dL (0.70-1.30); POTASSIUM 4.1 mmol/L (3.5-5.1); TOTAL PROTEIN 6.5 gm/dL (6.4-8.2)
== END 2021-12-13 13:42 | disposition home or self-care (01) ==
LOC: ED 10:04
PROVIDERS: Internal Medicine
DX: R06.02 Shortness of breath (principal); Z88.8 Allergy status to other drugs, medicaments and biological substances; Z79.899 Other long term (current) drug therapy; Z79.82 Long term (current) use of aspirin; Z90.89 Acquired absence of other organs; Z98.890 Other specified postprocedural states

== ENCOUNTER → 2022-01-13 | Outpatient (CLI) | payer OTHER, MEDICAID ==
[2022-01-13 08:41] LABS: BASO % 0.5 % (0.0-1.0); EOS # 0.3 10*3/uL (0.0-0.4); EOS % 3.2 % (1.0-4.0); HEMATOCRIT 38.9 % (42.0-52.0); LYMPH # 0.8 10*3/uL (1.3-4.4); LYMPH % 10.3 % (27.0-41.0); MEAN CORPUSCULAR HGB 29.2 pg (27.0-31.0); MEAN CORPUSCULAR HGB CONC 33.2 g/dl (33.0-37.0); MEAN PLATELET VOLUME 9.8 fl (9.6-12.3); MONO # 0.5 10*3/uL (0.1-1.0); MONO % 6.1 % (3.0-9.0); NEUT # 6.5 10*3/uL (2.3-7.9); NEUT % 79.7 % (47.0-73.0); PLATELET COUNT AUTOMATED 146 10*3/uL (130-400); RED BLOOD COUNT 4.42 10*6/uL (4.50-5.90); RED CELL DISTRI WIDTH 13.2 % (0-14.5); WHITE BLOOD COUNT 8.2 10*3/uL (4.8-10.8)
[2022-01-13 08:57] LABS: CREATININE 1.47 mg/dL (0.70-1.30); POTASSIUM 4.2 mmol/L (3.5-5.1); TOTAL PROTEIN 7.2 gm/dL (6.4-8.2)
== END | disposition home or self-care (01) ==
LOC: LAB 08:16
PROVIDERS: ATTEND Urology
DX: C61 Malignant neoplasm of prostate (principal); I10 Essential (primary) hypertension; R53.83 Other fatigue

== ENCOUNTER → 2022-04-12 | Outpatient (CLI) | payer OTHER, MEDICAID ==
[2022-04-12 15:02] LABS: BASO % 0.3 % (0.0-1.0); EOS # 0.1 10*3/uL (0.0-0.4); EOS % 2.2 % (1.0-4.0); HEMATOCRIT 32.6 % (42.0-52.0); LYMPH # 0.3 10*3/uL (1.3-4.4); LYMPH % 5.1 % (27.0-41.0); MEAN CELL VOLUME 90.1 fl (80.0-94.0); MEAN CORPUSCULAR HGB 29.3 pg (27.0-31.0); MEAN CORPUSCULAR HGB CONC 32.5 g/dl (33.0-37.0); MEAN PLATELET VOLUME 10.2 fl (9.6-12.3); MONO # 0.3 10*3/uL (0.1-1.0); MONO % 5.7 % (3.0-9.0); NEUT # 5.1 10*3/uL (2.3-7.9); NEUT % 86.5 % (47.0-73.0); PLATELET COUNT AUTOMATED 120 10*3/uL (130-400); RED BLOOD COUNT 3.62 10*6/uL (4.50-5.90); RED CELL DISTRI WIDTH 14.6 % (0-14.5); WHITE BLOOD COUNT 5.9 10*3/uL (4.8-10.8)
[2022-04-12 19:53] LABS: CREATININE 1.42 mg/dL (0.70-1.30); POTASSIUM 4.3 mmol/L (3.5-5.1); TOTAL PROTEIN 7.4 gm/dL (6.4-8.2)
== END ==
LOC: LAB 13:39
DX: C25.3 Malignant neoplasm of pancreatic duct (principal); R91.1 Solitary pulmonary nodule; K86.89 Other specified diseases of pancreas

== ENCOUNTER → 2022-05-24 | Outpatient (CLI) | payer OTHER, MEDICAID ==
[2022-05-24 08:25] LABS: BASO % 0.6 % (0.0-1.0); EOS # 0.1 10*3/uL (0.0-0.4); EOS % 1.8 % (1.0-4.0); HEMATOCRIT 32.5 % (42.0-52.0); LYMPH # 0.5 10*3/uL (1.3-4.4); LYMPH % 9.9 % (27.0-41.0); MEAN CELL VOLUME 84.6 fl (80.0-94.0); MEAN CORPUSCULAR HGB 27.6 pg (27.0-31.0); MEAN CORPUSCULAR HGB CONC 32.6 g/dl (33.0-37.0); MEAN PLATELET VOLUME 9.6 fl (9.6-12.3); MONO # 0.3 10*3/uL (0.1-1.0); MONO % 6.1 % (3.0-9.0); NEUT # 4.4 10*3/uL (2.3-7.9); NEUT % 81.4 % (47.0-73.0); PLATELET COUNT AUTOMATED 108 10*3/uL (130-400); RED BLOOD COUNT 3.84 10*6/uL (4.50-5.90); RED CELL DISTRI WIDTH 14.1 % (0-14.5); WHITE BLOOD COUNT 5.4 10*3/uL (4.8-10.8)
[2022-05-24 08:40] LABS: ALKALINE PHOSPHATASE 110 U/L (46-116); BUN 13 mg/dl (9-23); CHLORIDE 104 mmol/L (98-107); CREATININE 1.38 mg/dL (0.70-1.30); POTASSIUM 4.2 mmol/L (3.4-5.1); SGPT/ALT 16 U/L (10-49); SODIUM 139 mmol/L (136-145); TOTAL PROTEIN 7.2 gm/dL (6.0-8.0)
== END | disposition home or self-care (01) ==
LOC: LAB 08:10
DX: C25.3 Malignant neoplasm of pancreatic duct (principal); K86.89 Other specified diseases of pancreas; R91.1 Solitary pulmonary nodule